=== PATIENT | female | born 1950 | race Caucasian/White ===

== ENCOUNTER 2020-08-26 09:59 | Outpatient (REF) | payer MEDICARE, BC, SELFPAY ==
[2020-08-26 11:23] LABS: Hematocrit 41.4 % (37-47); Hemoglobin 13.2 g/dl (12.0-16.0); Mean Corpuscular HGB Conc 31.9 g/dl (31.0-35.0); Mean Corpuscular Hemoglobin 29.3 pg (27.0-33.0); Mean Corpuscular Volume 91.8 fL (80-98); Mean Platelet Volume 10.3 fL (9.4-12.3); Platelet Count 274 X10*3/uL (160-400); Red Blood Count 4.51 X10*6/uL (4.20-5.50); Red Cell Distribution Width 13.1 % (11.0-16.0); White Blood Count 6.5 X10*3/uL (4.8-10.8)
[2020-08-26 11:54] LABS: Alanine Aminotransferase 28 U/L (0-31); Albumin Level 4.2 g/dL (3.5-5.0); Alkaline Phosphatase 69 U/L (39-117); Anion Gap 12 (12-20); Aspartate Amino Transferase 24 U/L (5-31); Bilirubin Total 1.1 mg/dL (0.0-1.0); Blood Urea Nitrogen 17 mg/dL (9-16); Calcium 8.9 mg/dL (8.4-10.2); Carbon Dioxide 29 mmol/L (22-29); Chloride 105 mmol/L (96-108); Cholesterol 198 mg/dL; Estimated Glomerular Filt Rate > 60; Glucose Random 99 mg/dL (60-115); HDL Cholesterol 60 mg/dL; LDL Cholesterol Calculated 119 mg/dl; Potassium 4.4 mmol/L (3.3-5.1); Sodium 142 mmol/L (135-145); Total Protein 6.9 g/dL (6.5-8.0); Triglycerides 96 mg/dL
[2020-08-26 12:02] LABS: TSH reflex Free T4 1.94 uIU/mL (0.32-4.0)
== END 2020-08-26 10:00 | disposition home or self-care (01) ==
LOC: HO.HMGCLDS 09:59
PROVIDERS: PCP Internal Medicine; Visit Provider Internal Medicine
DX: M48.061 Spinal stenosis, lumbar region without neurogenic claudication (principal); G62.9 Polyneuropathy, unspecified; R53.83 Other fatigue
CPT/HCPCS: 36415; 80053; 80061; 84443; 85027

== ENCOUNTER → 2020-11-16 13:20 | Outpatient (BNVA) | payer MEDICARE, BC, SELFPAY | PROVIDERS: PCP Internal Medicine; Visit Provider Obstetrics & Gynecology ==

== ENCOUNTER 2021-03-30 13:06 | Outpatient (REF) | payer MEDICARE, BC, SELFPAY ==
--- NOTE | ~2021-03-30 | MM_ITS ---
EXAMINATION: MM SCREENING DIGITAL BREAST TOMOSYNTHESIS, BILATERAL CLINICAL INFORMATION: Screening. Asymptomatic. The lifetime risk of breast cancer based on the Tyrer-Cuzick Model is 7%. COMPARISON: Mammography: 03/25/2020, 03/08/2016 TECHNIQUE: Digital breast tomosynthesis is performed in both the craniocaudal and mediolateral oblique views along with computer-aided detection (CAD). Synthesized 2D images are generated from the tomosynthesis. Additional left MLO additional exaggerated left CC views are provided. FINDINGS: There are scattered areas of fibroglandular density (ACR BI-RADS breast composition Category b). There are no significant masses, abnormal calcifications, or other abnormalities. Parenchymal pattern is similar to prior exams. There are stable asymmetries on the right. No developing density. Skin contours are smooth. No significant changes. MM/MM tomosynthesis screening BI IMPRESSION: No mammographic evidence of malignancy. ASSESSMENT: BI-RADS 2: Benign RECOMMENDATION: Routine annual mammography screening. This patient's information was entered into a reminder system with a target due date for their next mammogram.
== END 2021-03-30 13:07 | disposition home or self-care (01) ==
LOC: HO.MAMMO 13:06
PROVIDERS: PCP Internal Medicine; Visit Provider Internal Medicine
DX: Z12.31 Encounter for screening mammogram for malignant neoplasm of breast (principal)
CPT/HCPCS: 77063; 77067

== ENCOUNTER 2021-09-04 10:04 | Outpatient (REF) | payer MEDICARE, BC, SELFPAY ==
[2021-09-04 11:18] LABS: Hematocrit 40.9 % (37.0-47.0); Hemoglobin 13.3 g/dl (12.0-16.0); Mean Corpuscular HGB Conc 32.5 g/dl (31.0-35.0); Mean Corpuscular Hemoglobin 30.1 pg (27.0-33.0); Mean Corpuscular Volume 92.5 fL (80.0-98.0); Platelet Count 295 X10*3/uL (160-400); Red Blood Count 4.42 X10*6/uL (4.20-5.50); Red Cell Distribution Width 13.2 % (11.0-16.0); White Blood Count 6.6 X10*3/uL (4.8-10.8)
[2021-09-04 11:45] LABS: Alanine Aminotransferase 25 U/L (0-31); Albumin Level 4.1 g/dL (3.5-5.0); Alkaline Phosphatase 65 U/L (39-117); Anion Gap 12 (12-20); Aspartate Amino Transferase 21 U/L (5-31); Bilirubin Total 0.9 mg/dL (0.0-1.0); Blood Urea Nitrogen 17 mg/dL (9-16); Calcium 9.4 mg/dL (8.4-10.2); Carbon Dioxide 29 mmol/L (22-29); Chloride 105 mmol/L (96-108); Cholesterol 203 mg/dL; Estimated Glomerular Filt Rate > 60; Glucose Fasting 101 mg/dL (60-99); HDL Cholesterol 66 mg/dL; LDL Cholesterol Calculated 124 mg/dl; Potassium 4.3 mmol/L (3.3-5.1); Sodium 142 mmol/L (135-145); Total Protein 6.8 g/dL (6.5-8.0); Triglycerides 69 mg/dL
[2021-09-04 11:47] LABS: Vitamin D 25-OH Total 46.2 ng/mL (>30)
== END 2021-09-04 10:05 | disposition home or self-care (01) ==
LOC: HO.HMGCLDS 10:04
PROVIDERS: Visit Provider Internal Medicine
DX: M48.061 Spinal stenosis, lumbar region without neurogenic claudication (principal); R53.83 Other fatigue; E55.9 Vitamin D deficiency, unspecified
CPT/HCPCS: 36415; 80053; 80061; 82306; 85027

== ENCOUNTER 2021-09-07 10:24 | Outpatient (REF) | payer MEDICARE, BC, SELFPAY ==
[2021-09-07 12:28] LABS: TSH reflex Free T4 1.85 uIU/mL (0.32-4.0)
[2021-09-07 13:03] LABS: Folate 18.8 ng/mL (> or = 4.0); Vitamin B12 > 2000 pg/mL (200-900)
[2021-09-11 12:41] LABS: Methylmalonic Acid 121 nmol/L (87-318)
== END 2021-09-07 10:25 | disposition home or self-care (01) ==
LOC: HO.HMGCLDS 10:24
PROVIDERS: PCP Internal Medicine; Visit Provider Internal Medicine
DX: Z00.00 Encounter for general adult medical examination without abnormal findings (principal); E53.8 Deficiency of other specified B group vitamins; E55.9 Vitamin D deficiency, unspecified; G62.9 Polyneuropathy, unspecified
CPT/HCPCS: 36415; 82607; 82746; 83921; 84443

== ENCOUNTER 2022-02-04 04:11 | Emergency (ER) | payer MEDICARE, BC, SELFPAY ==
--- NOTE | ~2022-02-04 | CT_ITS ---
EXAMINATION: CT ABDOMEN AND PELVIS WITHOUT CONTRAST CLINICAL INFORMATION: Left flank pain with blood in urine. COMPARISON: None TECHNIQUE: Multidetector volumetric imaging was performed from the superior aspect of the liver through the pubic symphysis. Sagittal and coronal reformatted images were obtained on the technologist's workstation. This CT examination was performed using dose optimization techniques as appropriate, variously including the following: *Automated exposure control *Adjustment of mA and/or kV according to patient size (this includes techniques or standardized protocols for targeted exams where dose is matched to indication/reason for exam; i.e. extremities or head) *Use of iterative reconstruction technique DLP: 655 mGy-cm FINDINGS: LUNG BASES: There are mild atelectatic changes in the lingula. The lung bases are clear. The heart size is normal. LIVER, GALLBLADDER, AND BILIARY TREE: The liver is normal in size, shape, and attenuation. No focal hepatic lesion or biliary ductal dilatation is present. The gallbladder is unremarkable with no evidence of radiopaque gallstones, gallbladder wall thickening, or obvious pericholecystic inflammatory changes. PANCREAS: There is a hypodense-appearing head of the pancreas but no focal enlargement is seen. The peripancreatic fat borders are maintained. The body and the tail of pancreas are unremarkable. SPLEEN: Unremarkable. ADRENAL GLANDS: Unremarkable. KIDNEYS AND URETERS: The kidneys are normal in size, shape, and attenuation. There is 2 mm radiopaque calculi in the lower pole and upper pole left kidneys without caliectasis. There is moderate left hydronephrosis secondary to an obstructive left UVJ. There is a 4 mm obstructive radiopaque calculi. There are no radiopaque calculi seen in the right kidney. BLADDER: Unremarkable. GASTROINTESTINAL TRACT: There is scattered stool and gas seen in the colon without any significant distention. The small bowel loops are of normal caliber. The stomach is nondistended. Appendix is of normal caliber. There is no free air or inflammatory process. ABDOMINAL WALL: No significant hernia is appreciated. LYMPH NODES: Normal. VASCULAR: There is atherosclerotic changes of abdominal aorta without aneurysmal dilatation. PELVIC VISCERA: The uterus is anteverted and appears unremarkable. There is no free air or free fluid. OSSEOUS STRUCTURES: There are degenerative disc changes throughout the lumbar spine with ventral spondylosis. Grade 1 anterolisthesis of L4-L5 is seen. There is moderate ventral spondylosis of L5-S1 and lower dorsal and upper lumbar spine. No lytic or sclerotic process is seen. CT/CT abdomen pelvis wo con IMPRESSION: 4 mm obstructive radiopaque calculi left UVJ with mild hydroureteronephrosis. Nonobstructive 3 mm radiopaque calculi of the upper and lower pole left kidney. Mild constipation. Degenerative disc changes and spondylosis throughout the lower dorsal and upper lumbar spines with mild levoscoliosis of the dorsolumbar junction. Fleischner guidelines were followed.
[2022-02-04 04:29] VITALS: BP 185/75; PULSE 75; RESP 20; TEMP 37.1; O2SAT 95; BMI 34.7
[2022-02-04 04:41] LABS: Hematocrit 41.3 % (37.0-47.0); Hemoglobin 13.7 g/dl (12.0-16.0); Mean Corpuscular HGB Conc 33.2 g/dl (31.0-35.0); Mean Corpuscular Hemoglobin 29.7 pg (27.0-33.0); Mean Corpuscular Volume 89.6 fL (80.0-98.0); Mean Platelet Volume 12.5 fL (9.4-12.3); Red Blood Count 4.61 X10*6/uL (4.20-5.50); Red Cell Distribution Width 13.1 % (11.0-16.0); White Blood Count 11.3 X10*3/uL (4.8-10.8)
[2022-02-04 04:57] LABS: Alanine Aminotransferase 26 U/L (0-31); Albumin Level 4.4 g/dL (3.5-5.0); Alkaline Phosphatase 67 U/L (39-117); Anion Gap 14 (12-20); Aspartate Amino Transferase 26 U/L (5-31); Blood Urea Nitrogen 14 mg/dL (9-16); Calcium 9.5 mg/dL (8.4-10.2); Carbon Dioxide 27 mmol/L (22-29); Chloride 103 mmol/L (96-108); Creatinine Clr Calc Pharmacy 67.2; Estimated Glomerular Filt Rate > 60; Glucose Random 126 mg/dL (60-115); Sodium 140 mmol/L (135-145); Total Protein 7.4 g/dL (6.5-8.0)
[2022-02-04 05:29] LABS: Appearance Urine CLEAR; Color Urine YELLOW; Glucose Urine UA NEG (NEG); Leukocyte Esterase Urine NEG (NEG); Nitrite Urine NEG (NEG); UACC Culture Trigger NO; Urine Blood 3+ (NEG); Urine Ketones NEG (NEG); Urine Protein NEG (NEG-TRACE)
[2022-02-04 05:45] LABS: Amorphous Sediment Urine 1+ /LPF; Mucus Urine TRACE /LPF; RBC Urine 0-2 /HPF (0); Squamous Epithelial Cell Urine 1+ /LPF
--- NOTE | 2022-02-04 08:21 | ED.GENADULT ---
HPI - General Adult General Chief complaint: Abdominal Pain Stated complaint: bladder / kidney infection? unable to urinate Time Seen by Provider: 02/04/22 08:07 Source: patient and family Mode of arrival: ambulatory Limitations: no limitations History of Present Illness HPI narrative: 71 year old female came in for evaluation of left flank pain. Left flank pain started since 04:00 in the morning woke the patient up from sleep, pain was described as left flank radiated to the left groin area, patient took 2 doses of clindamycin left over at home, half an hour later patient's symptoms improved. No dysuria, no urinary frequency. Related Data Home Medications Medication Instructions Recorded Confirmed ascorbic acid (vitamin C) 500 mg mg PO 05/06/20 09/07/21 capsule cholecalciferol (vitamin D3) 50 50 mcg PO DAILY 05/06/20 09/07/21 mcg (2,000 unit) capsule cyclosporine 0.05 % eye drops in a drp ophthalmic (eye) 05/06/20 09/07/21 dropperette etodolac 400 mg tablet 400 mg PO BID 05/06/20 09/07/21 fluticasone propionate 50 intranasal 05/06/20 09/07/21 mcg/actuation nasal spray,suspension alendronate 70 mg tablet 70 mg PO QWEEK 08/20/20 09/07/21 alpha lipoic acid 300 mg capsule 300 mg PO TID 09/07/21 09/07/21 arganie PO 09/07/21 09/07/21 clindamycin HCl 300 mg capsule 600 mg PO QID 09/07/21 09/07/21 mecobalamin (vitamin B12) PO 09/07/21 09/07/21 Previous Rx's Medication Instructions Recorded albuterol sulfate 90 mcg/actuation 2 puff inhalation QID #6.7 grams 05/06/20 aerosol inhaler (ProAir HFA) valacyclovir 500 mg tablet 500 mg PO BID #30 tabs 05/15/20 (Valtrex) fluticasone 100 mcg-salmeterol 50 1 inh inhalation BID #60 ea 08/11/20 mcg/dose blistr powdr for inhalation montelukast 10 mg tablet 10 mg PO BEDTIME #90 tabs 02/08/21 pantoprazole 40 mg tablet,delayed 40 mg PO DAILY #90 tabs 11/01/21 release ibuprofen 600 mg tablet 600 mg PO Q8H PRN pain #20 tabs 02/04/22 Allergies Allergy/AdvReac Type Severity Reaction Status Date / Time adhesive tape [ADHESIVE TAPE] Allergy Intermediate BLISTERS/IT Verified 09/07/21 09:25 CH latex [LATEX] Allergy Intermediate BLISTERS/IT Verified 09/07/21 09:25 CH Penicillins [PENICILLINS] Allergy Intermediate HIVES/RASH Verified 09/07/21 09:25 sulfamethoxazole Allergy Unknown puritis Verified 09/07/21 09:25 [From Bactrim] trimethoprim [From Bactrim] Allergy Unknown puritis Verified 09/07/21 09:25 erythromycin base AdvReac Intermediate N/V Verified 09/07/21 09:25 [ERYTHROMYCIN BASE] meloxicam AdvReac Unknown body aches Verified 09/07/21 09:25 Review of Systems Review of Systems: All other systems are reviewed and are negative Constitutional: Reports as per HPI and Reports no additional constitutional complaints Eyes: Reports as per HPI and Reports no additional eye complaints Reports system reviewed and no additional complaints, except as documented Cardiovascular: Reports as per HPI and Reports no additional cardiovascular complaints Respiratory: Reports as per HPI and Reports no additional respiratory complaints Gastrointestinal: Reports as per HPI and Reports no additional gastrointestinal complaints Genitourinary: Reports no additional female genitourinary complaints Musculoskeletal: Reports no additional musculoskeletal complaints Skin/Breast: Reports system reviewed and no additional complaints, except as docu Psychiatric: Reports no additional psychiatric complaints Endocrine: Reports no additional endocrine complaints Hematologic/Lymphatic: Reports no additional hematologic/lymphatic complaints Allergic/Immunologic: Reports no additional allergic/immunologic complaints Reports system reviewed and no additional complaints, except as documented and Reports Abnormal speech present FOR[facility]LY [facility] Past Medical History Medical History Acid reflux Annual physical exam Arthritis Asthma Fatigue Lumbar stenosis Mammogram normal Neuropathy Normal breast exam Normal colonoscopy Osteopenia PMR (polymyalgia rheumatica) Seasonal allergies Venous insufficiency Vitamin B 12 deficiency Vitamin D deficiency Surgical History H/O arthroscopy of knee H/O colonoscopy History of section History of knee replacement History of ligation of vein Family History Family History Father No problems noted. Mother Heart disease Maternal Grandfather No problems noted. Maternal Grandmother No problems noted. Paternal Grandfather No problems noted. Paternal Grandmother Breast cancer Social History Social History Advance Directives: No Advance Directives Information Provided: Yes Physical Exam ED Vital Signs: Vital Signs - 24 hr 02/04/22 04:29 Temperature 98.7 F Pulse Rate 75 Respiratory Rate 20 Blood Pressure 185/75 H Pulse Oximetry 95 Oxygen Delivery Method Room Air BMI result Body Mass Index 34.7 Vital signs have been reviewed as appeared to be correct. Blood pressure normal. Heart rate normal. Respiration rate normal. Temperature normal. Oxygen saturation normal. Appearance: Alert. Oriented X3. No acute distress. Head: Normal external exam. Normocephalic. Atraumatic. No Will signs noted. No raccoon eyes noted Eyes: PERRLA. EOMI. Conjunctiva and sclera normal. Eyelids normal. ENT: TM's Normal. Pharynx normal. Uvula midline. Moist mucous membranes. No trismus noted. No drooling noted. No muffled voice noted. Neck: Normal inspection. Neck supple. FROM. No adenopathy. Thyroid Normal. No meningeal signs. No neck mass noted. CVS: Normal heart rate and rhythm. Heart sound normal. No murmurs noted. Pulses normal throughout. Respiratory: No respiratory distress. Painless inspiration. Breath sounds normal. No wheezes/rales/rhonchi noted. Chest nontender. No accessory muscle usage noted or decreased air movement noted. Abdomen: Soft and nontender. Bowel sounds normal in all 4 quadrants. No distention noted. No organomegaly noted. No visible injury noted. Back: No CVA tenderness. Full range of motion noted. Skin: Skin warm and dry. Normal skin color. Normal skin turgor. No rashes/lesions/lacerations noted. Extremities: No lower extremity edema. Extremities exhibit normal range of motion. Extremities nontender. Neuro: Oriented X 3. Cranial nerve exam: II-XII are grossly intact No motor deficit. No sensory deficit. Reflexes normal. Course Course Course Narrative: 71 years old female came in for left lower quadrant/left flank pain due to 4 mm obstructing stone in UVJ, patient now has no pain sitting comfortable in the ED, will discharge the patient with encouraged to drink plenty of fluids and use NSAIDs p.r.n. pain. Medical Decision Making Lab Data Lab results reviewed: Yes I reviewed the patient's lab results. Result diagrams: 02/04/22 04:25 02/04/22 04:25 Labs: Lab Results 02/04/22 02/04/22 02/04/22 Range/Units 04:25 04:25 05:22 WBC 11.3 H (4.8-10.8) X10*3/uL RBC 4.61 (4.20-5.50) X10*6/uL Hgb 13.7 (12.0-16.0) g/dl Hct 41.3 (37.0-47.0) % MCV 89.6 (80.0-98.0) fL MCH 29.7 (27.0-33.0) pg MCHC 33.2 (31.0-35.0) g/dl RDW 13.1 (11.0-16.0) % Plt Count TNP MPV 12.5 H (9.4-12.3) fL Absolute Nucleated RBC 0.000 (0.0-0.012) X10*3/uL Nucleated RBC % (auto) 0.0 (0.0-0.2) /100WBC Sodium 140 (135-145) mmol/L Potassium 4.0 (3.3-5.1) mmol/L Chloride 103 (96-108) mmol/L Carbon Dioxide 27 (22-29) mmol/L Anion Gap 14 (12-20) BUN 14 (9-16) mg/dL Creatinine 0.76 (0.5-1.4) mg/dL Estim Creat Clear Calc 67.2 Estimated GFR > 60 Random Glucose 126 H (60-115) mg/dL Calcium 9.5 (8.4-10.2) mg/dL Total Bilirubin 1.0 (0.0-1.0) mg/dL AST 26 (5-31) U/L ALT 26 (0-31) U/L Alkaline Phosphatase 67 (39-117) U/L Total Protein 7.4 (6.5-8.0) g/dL Albumin 4.4 (3.5-5.0) g/dL Urine Color YELLOW Urine Appearance CLEAR Urine pH 6.0 (5.0-8.0) Ur Specific [place] 1.010 (1.005-1.025) Urine Protein NEG (NEG-TRACE) MG/DL Urine Glucose (UA) NEG (NEG) MG/DL Urine Ketones NEG (NEG) MG/DL Urine Blood 3+ H (NEG) Urine Nitrite NEG (NEG) Ur Leukocyte Esterase NEG (NEG) Urine RBC 0-2 (0) /HPF Urine WBC 1-4 (0-4) /HPF Ur Squamous Epith Cells 1+ /LPF Amorphous Sediment 1+ /LPF Urine Bacteria NONE /LPF Urine Mucus TRACE /LPF Imaging Data CT abdomen and pelvis: Attestation: I personally reviewed and interpreted this imaging study as follows: Radiologist's impression: 4 mm obstructive radiopaque calculi left UVJ with mild hydroureteronephrosis. ? Nonobstructive 3 mm radiopaque calculi of the upper and lower pole left kidney. ? Mild constipation. ? Degenerative disc changes and spondylosis throughout the lower dorsal and upper lumbar spines with mild levoscoliosis of the dorsolumbar junction.? Discharge Plan Discharge Clinical Impression: Abdominal pain, Kidney stone Patient Disposition: Home, Self-Care Instructions: Renal Colic (ED) Prescriptions: New ibuprofen 600 mg tablet 600 mg PO Q8H PRN (Reason: pain) Qty: 20 0RF No Action valacyclovir [Valtrex] 500 mg tablet 500 mg PO BID Qty: 30 4RF fluticasone propion-salmeterol 100-50 mcg/dose blister with device 1 inh inhalation BID Qty: 60 6RF montelukast 10 mg tablet 10 mg PO BEDTIME Qty: 90 3RF pantoprazole 40 mg tablet,delayed release (DR/EC) 40 mg PO DAILY Qty: 90 3RF fluticasone propionate 50 mcg/actuation spray,suspension intranasal Restasis 0.05 % dropperette ophthalmic (eye) etodolac 400 mg tablet 400 mg PO BID cholecalciferol (vitamin D3) 50 mcg (2,000 unit) capsule 50 mcg PO DAILY ascorbic acid (vitamin C) 500 mg capsule PO albuterol sulfate [ProAir HFA] 90 mcg/actuation HFA aerosol inhaler 2 puff inhalation QID Qty: 6.7 4RF alendronate 70 mg tablet 70 mg PO QWEEK alpha lipoic acid 300 mg capsule 300 mg PO TID mecobalamin (vitamin B12) PO arganie PO clindamycin HCl 300 mg capsule 600 mg PO QID Rx Instructions: before dental procedures Referrals: Ricardo Mallory MD [Physician] - Natali Macario MD [Primary Care Provider] -
--- NOTE | 2022-02-04 11:12 | PC.NURSE ---
Called radiology again regarding delay in CT scan results report. Staff member stated I messaged the doctor about it already and hung up the phone. Pt aware of delay in receiving report.
== END 2022-02-04 11:37 | disposition home or self-care (01) ==
PROVIDERS: Emergency Provider Emergency Medicine; PCP Internal Medicine
DX: N13.2 Hydronephrosis with renal and ureteral calculous obstruction (principal); R10.9 Unspecified abdominal pain; Z79.899 Other long term (current) drug therapy
CPT/HCPCS: 36415; 74176; 80053; 81001; 85027; 99283; 99284

== ENCOUNTER 2022-04-05 13:15 | Outpatient (REF) | payer MEDICARE, BC, SELFPAY ==
--- NOTE | ~2022-04-05 | MM_ITS ---
EXAMINATION: MM SCREENING DIGITAL BREAST TOMOSYNTHESIS, BILATERAL CLINICAL INFORMATION: Screening. Asymptomatic. The lifetime risk of breast cancer based on the Tyrer-Cuzick Model is 6.7%. COMPARISON: Mammography: March 30, 2021 and studies dating back to December 25, 2013 TECHNIQUE: Digital breast tomosynthesis is performed in both the craniocaudal and mediolateral oblique views along with computer-aided detection (CAD). Synthesized 2D images are generated from the tomosynthesis. FINDINGS: There are scattered areas of fibroglandular density (ACR BI-RADS breast composition Category b). There are no significant masses, abnormal calcifications, or other abnormalities. MM/MM tomosynthesis screening BI IMPRESSION: No significant changes from prior exam. ASSESSMENT: BI-RADS 1: Negative RECOMMENDATION: Routine annual mammography screening. This patient's information was entered into a reminder system with a target due date for their next mammogram.
== END 2022-04-05 13:16 | disposition home or self-care (01) ==
LOC: HO.MAMMO 13:15
PROVIDERS: PCP Internal Medicine; Visit Provider Internal Medicine
DX: Z12.31 Encounter for screening mammogram for malignant neoplasm of breast (principal)
CPT/HCPCS: 77063; 77067

== ENCOUNTER 2022-08-04 11:46 | Outpatient (REF) | payer MEDICARE, BC, SELFPAY ==
[2022-08-04 14:03] LABS: MANUAL DIFF FLAG NO
[2022-08-04 14:17] LABS: Basophils Absolute Auto 0.1 X10*3/uL (0.0-0.2); Eosinophils Absolute Auto 0.2 X10*3/uL (0.0-0.4); Eosinophils Percent Auto 1.8 % (0-4); Hematocrit 46.5 % (37.0-47.0); Hemoglobin 14.8 g/dl (12.0-16.0); Imm Gran Abs Auto 0.02 X10*3/uL (0.00-0.03); Imm Gran Pct Auto 0.2 % (0.0-0.4); Lymphocytes Absolute Auto 1.1 X10*3/uL (1.2-4.9); Lymphocytes Percent Auto 13.6 % (20-40); Mean Corpuscular HGB Conc 31.8 g/dl (31.0-35.0); Mean Corpuscular Hemoglobin 28.7 pg (27.0-33.0); Mean Corpuscular Volume 90.3 fL (80.0-98.0); Monocytes Absolute Auto 0.5 X10*3/uL (0.1-1.2); Monocytes Percent Auto 6.3 % (2-11); Neutrophils Absolute Auto 6.4 x10*3/uL (2.0-8.3); Neutrophils Percent Auto 77.1 % (45-73); Red Blood Count 5.15 X10*6/uL (4.20-5.50); Red Cell Distribution Width 12.4 % (11.0-16.0); White Blood Count 8.3 X10*3/uL (4.8-10.8)
[2022-08-04 14:31] LABS: Alanine Aminotransferase 17 U/L (0-31); Albumin Level 4.5 g/dL (3.5-5.0); Alkaline Phosphatase 85 U/L (39-117); Anion Gap 15 (12-20); Aspartate Amino Transferase 18 U/L (5-31); Bilirubin Total 1.1 mg/dL (0.0-1.0); Blood Urea Nitrogen 13 mg/dL (9-16); Calcium 9.6 mg/dL (8.4-10.2); Carbon Dioxide 26 mmol/L (22-29); Chloride 104 mmol/L (96-108); Estimated Glomerular Filt Rate > 60; Glucose Random 98 mg/dL (60-115); Magnesium 2.1 mg/dL (1.6-2.6); Potassium 4.2 mmol/L (3.3-5.1); Sodium 141 mmol/L (135-145); Total Protein 7.7 g/dL (6.5-8.0)
[2022-08-04 14:50] LABS: TSH reflex Free T4 1.97 uIU/mL (0.32-4.0)
[2022-08-04 14:52] LABS: Vitamin B12 1294 pg/mL (200-900)
[2022-08-09 16:59] LABS: Vitamin D 25-OH, D2 <4 ng/mL; Vitamin D 25-OH, D3 34 ng/mL; Vitamin D 25-OH, Total 34 ng/mL (30-100)
== END 2022-08-04 11:47 | disposition home or self-care (01) ==
LOC: HO.HMGCLDS 11:46
PROVIDERS: PCP Internal Medicine; Visit Provider Internal Medicine
DX: R25.2 Cramp and spasm (principal)
CPT/HCPCS: 36415; 80053; 82306; 82607; 83735; 84443; 85025

== ENCOUNTER 2022-09-02 13:01 | Outpatient (REF) | payer MEDICARE, BC, SELFPAY ==
[2022-09-02 14:40] LABS: Blood Urea Nitrogen 19 mg/dL (9-16); Estimated Glomerular Filt Rate > 60
== END 2022-09-02 13:02 | disposition home or self-care (01) ==
LOC: HO.HMGCLDS 13:01
PROVIDERS: PCP Internal Medicine; Visit Provider Physician Assistant Medical
DX: M54.16 Radiculopathy, lumbar region (principal)
CPT/HCPCS: 36415; 82565; 84520

== ENCOUNTER 2022-09-09 09:56 | Outpatient (REF) | payer MEDICARE, BC, SELFPAY ==
[2022-09-09 11:43] LABS: MANUAL DIFF FLAG NO
[2022-09-09 11:58] LABS: Basophils Absolute Auto 0.1 X10*3/uL (0.0-0.2); Eosinophils Absolute Auto 0.3 X10*3/uL (0.0-0.4); Eosinophils Percent Auto 5.5 % (0-4); Hematocrit 41.3 % (37.0-47.0); Hemoglobin 13.4 g/dl (12.0-16.0); Imm Gran Abs Auto 0.02 X10*3/uL (0.00-0.03); Imm Gran Pct Auto 0.3 % (0.0-0.4); Lymphocytes Absolute Auto 1.2 X10*3/uL (1.2-4.9); Lymphocytes Percent Auto 20.8 % (20-40); Mean Corpuscular HGB Conc 32.4 g/dl (31.0-35.0); Mean Corpuscular Hemoglobin 28.8 pg (27.0-33.0); Mean Corpuscular Volume 88.8 fL (80.0-98.0); Mean Platelet Volume 10.5 fL (9.4-12.3); Monocytes Absolute Auto 0.5 X10*3/uL (0.1-1.2); Monocytes Percent Auto 8.2 % (2-11); Neutrophils Absolute Auto 3.8 x10*3/uL (2.0-8.3); Neutrophils Percent Auto 64.2 % (45-73); Platelet Count 225 X10*3/uL (160-400); Red Blood Count 4.65 X10*6/uL (4.20-5.50); Red Cell Distribution Width 13.1 % (11.0-16.0)
[2022-09-09 12:23] LABS: Alanine Aminotransferase 18 U/L (0-31); Albumin Level 3.9 g/dL (3.5-5.0); Alkaline Phosphatase 72 U/L (39-117); Anion Gap 15 (12-20); Aspartate Amino Transferase 16 U/L (5-31); Blood Urea Nitrogen 17 mg/dL (9-16); Calcium 9.5 mg/dL (8.4-10.2); Carbon Dioxide 31 mmol/L (22-29); Chloride 104 mmol/L (96-108); Cholesterol 195 mg/dL; Estimated Glomerular Filt Rate > 60; Glucose Fasting 102 mg/dL (60-99); HDL Cholesterol 56 mg/dL; LDL Cholesterol Calculated 118 mg/dl; Potassium 4.6 mmol/L (3.3-5.1); Sodium 145 mmol/L (135-145); Total Protein 6.6 g/dL (6.5-8.0); Triglycerides 107 mg/dL
[2022-09-09 12:38] LABS: Vitamin D 25-OH Total 33.1 ng/mL (>30)
== END 2022-09-09 09:57 | disposition home or self-care (01) ==
LOC: HO.HMGCLDS 09:56
PROVIDERS: PCP Internal Medicine; Visit Provider Internal Medicine
DX: Z00.00 Encounter for general adult medical examination without abnormal findings (principal); J45.909 Unspecified asthma, uncomplicated; R53.83 Other fatigue; E55.9 Vitamin D deficiency, unspecified
CPT/HCPCS: 36415; 80053; 80061; 82306; 85025

== ENCOUNTER 2023-04-11 13:22 | Outpatient (REF) | payer MEDICARE, BC, SELFPAY ==
--- NOTE | ~2023-04-11 | MM_ITS ---
EXAMINATION: MM SCREENING DIGITAL BREAST TOMOSYNTHESIS, BILATERAL CLINICAL INFORMATION: Screening. Asymptomatic. COMPARISON: Mammography: This study is compared with prior exams dating back to 2016. TECHNIQUE: Digital breast tomosynthesis is performed in both the craniocaudal and mediolateral oblique views along with computer-aided detection (CAD). Synthesized 2D images are generated from the tomosynthesis. FINDINGS: There are scattered areas of fibroglandular density (ACR BI-RADS breast composition Category b). This is the overall breast density however, there is long-standing relative the more glandular tissue in the right breast as compared to the left. The left breast is predominantly fatty replaced. This is normal for this patient, multiple prior mammograms. There are no significant masses, abnormal calcifications, or other abnormalities. MM/MM tomosynthesis screening BI IMPRESSION: No mammographic evidence of malignancy. ASSESSMENT: BI-RADS BI-RADS 1 - Negative RECOMMENDATION: Routine annual mammography screening. 1 year F/U This examination should not preclude the clinical evaluation of a suspicious palpable abnormality. This patient's information was entered into a reminder system with a target due date for their next mammogram.
== END 2023-04-11 13:23 | disposition home or self-care (01) ==
LOC: HO.MAMMO 13:22
PROVIDERS: PCP Internal Medicine; Visit Provider Internal Medicine
DX: Z12.31 Encounter for screening mammogram for malignant neoplasm of breast (principal)
CPT/HCPCS: 77063; 77067

== ENCOUNTER → 2023-04-11 13:30 | Outpatient (BNV) | payer MEDICARE, BC, SELFPAY | PROVIDERS: PCP Internal Medicine; Visit Provider Radiology Diagnostic Radiology | DX: Z12.31 Encounter for screening mammogram for malignant neoplasm of breast (principal) | CPT/HCPCS: 77063; 77067 ==

== ENCOUNTER 2023-09-14 11:21 | Outpatient (AMB) | payer MEDICARE, BC, SELFPAY ==
[2023-09-14 11:44] VITALS: BP 120/78; PULSE 69; O2SAT 99; BMI 34.7
--- NOTE | 2023-09-14 11:44 | A.OFFVIS_ITS ---
Intake Vital Signs 09/14/23 11:44 Height 5 ft 2 in Weight 190 lb BMI 34.7 BP 120/78 Blood Pressure Location Lt brachial Position Sitting Pulse 69 Pulse Source Pulse Oximeter Pulse Oximetry (%) 99 Oxygen Delivery Method Room Air Intake Visit Reasons: MINDY [id number]. discuss/bill ACP Allergies adhesive tape [ADHESIVE TAPE] Allergy (Intermediate, Verified 09/14/23 11:46) BLISTERS/ITCH latex [LATEX] Allergy (Intermediate, Verified 09/14/23 11:46) BLISTERS/ITCH Penicillins [PENICILLINS] Allergy (Intermediate, Verified 09/14/23 11:46) HIVES/RASH sulfamethoxazole [From Bactrim] Allergy (Unknown, Verified 09/14/23 11:46) puritis trimethoprim [From Bactrim] Allergy (Unknown, Verified 09/14/23 11:46) puritis erythromycin base [ERYTHROMYCIN BASE] Adverse Reaction (Intermediate, Verified 09/14/23 11:46) N/V meloxicam Adverse Reaction (Unknown, Verified 09/14/23 11:46) body aches Medication List - Last Reconciled 09/14/23 by Natali Macario MD albuterol sulfate 90 mcg/actuation (ProAir HFA) 2 puffs inhalation QID alendronate 70 mg PO QWEEK [arganie PO] ascorbic acid (vitamin C) mg PO celecoxib (Celebrex) 250 mg PO DAILY cholecalciferol (vitamin D3) 50 mcg PO DAILY clindamycin HCl 600 mg PO QID cyclosporine 0.05% drps ophthalmic (eye) fluticasone propion-salmeterol 100-50 mcg/dose (Wixela Inhub) 1 inh inhalation BID fluticasone propionate 50 mcg/actuation 2 sprays intranasal DAILY gabapentin 900 mg PO DAILY montelukast 10 mg PO BEDTIME pantoprazole 40 mg PO DAILY valacyclovir (Valtrex) 500 mg PO BID HPI SWV [id number]. discuss/bill ACP HPI Details Initiated the conversation about Advanced Directives. Advanced Directives help? patients prepare for current and future decisions about their medical treatment? and place of care. Discussed with patient that it is a process where a patients? current condition and prognosis are reviewed, their wishes for information? regarding their illness are elicited, and likely medical dilemmas are presented? and options discussed. The form can be amended as needed, reviewed yearly and? make changes as needed IPPE/AWV ? year old presents? for her ? Annual? Wellness Visit, initial visit.? Medical / Social History Reviewed? Past Medical History ?Yes? . ? [facility] Ira? of Care / Care Team list updated ?Yes . ? Surgical/Hospitalization? History ?Yes . ? Current Medications? (including OTC and supplements) ?Yes . ? Family History ?Yes? . ? Tobacco? Control form ?Yes . ? AUDIT-C (Alcohol use) form? ?Yes . ? Illicit drug use in Social? History ?Yes . ? Current diagnosis of? depression? ?No ? Appropriate PHQ2/PHQ9? completed ?Yes . ? Data entered by ?Medical? Case Managers and reviewed by provider ? Fall Risk ? Fall? History? Have you had any falls with? injury in the past year? ?No . ? Have you had two or more? falls in the past year? ?No . ? Fall Risk Assessment: ?No? falls in the past year . ? HRA filled out by? the patient, reviewed by Provider and scanned. ? IPPE/AWV ? Balance? Romberg? ?Yes . ? Tandem? walk ?Yes . ? Walk and? Turn ?Yes . ? Rise from? sit to stand ?Yes . ?Vision? Corrective? lens ?Yes ? Vision? screen ? Up-to-date, has an appointment [] for vision? screening and glaucoma screening ?Hearing? Whisper? test ?pass .? Initiated the conversation about Advanced Directives. Advanced Directives help? patients prepare for current and future decisions about their medical treatment? and place of care. Discussed with patient that it is a process where a patients? current condition and prognosis are reviewed, their wishes for information? regarding their illness are elicited, and likely medical dilemmas are presented? and options discussed. The form can be amended as needed, reviewed yearly and? make changes as needed Written? Plan?Completed. See Patient? Documents. [facility] Medical History (Updated 09/14/23 @ 15:35 by Natali Macario MD) Normal breast exam Vitamin B 12 deficiency Annual physical exam Vitamin D deficiency Fatigue Lumbar stenosis Neuropathy Mammogram normal Normal colonoscopy Osteopenia PMR (polymyalgia rheumatica) Venous insufficiency Arthritis Acid reflux Seasonal allergies Asthma Surgical History H/O colonoscopy History of ligation of vein History of knee replacement H/O arthroscopy of knee History of section Family History Father No problems noted. Mother Heart disease Maternal Grandfather No problems noted. Maternal Grandmother No problems noted. Paternal Grandfather No problems noted. Paternal Grandmother Breast cancer Questionnaire Medicare Wellness Checkup [age] What gender do you identify with?: female During the past 4 weeks, how much have you been bothered by emotional problems such as feeling anxious, depressed, irritable, sad or downhearted, and blue?: slightly During the past 4 weeks, has your physical & emotional health limited your social activities with family, friends, neighbors, or groups?: not at all During the past 4 weeks, how much bodily pain have you generally had?: mild pain During the past 4 weeks, was someone available to help you if you needed & wanted help?: yes, as much as I wanted During the past 4 weeks, what was the hardest physical activity you could do for at least 2 minutes?: moderate Can you go shopping for groceries or clothes without someone's help?: Yes Can you prepare your own meals?: Yes Can you do your housework without help?: Yes Because of any health problems, do you need the help of another person with your personal care needs such as eating, bathing, dressing or getting around the house?: No Can you handle your own money without help?: Yes During the past 4 weeks, how would you rate your health in general?: excellent During the past 4 weeks how have things been going for you?: pretty well Are you having difficulties driving your car?: no Do you always fasten your seat belt when you are in a car?: yes, usually During past 4 weeks, have you been bothered by the following: never: Sexual problems?, Trouble eating well?, Teeth or denture problems? and Problems using the telephone?, seldom: Falling or dizzy when standing up and sometimes: Tiredness or fatigue? Have you fallen 2 or more times in the past year?: No Are you afraid of falling?: Yes Are you a smoker?: no During the past 4 weeks, how many drinks of wine, beer, or other alcoholic beverages did you have?: 1 drink or less per week Do you exercise for about 20 minutes 3 or more times a week?: yes, some of the time Have you been given information to help with the following?: yes: Hazards in your house that might hurt you? and yes: Keeping track of your medications? How often do you have trouble taking medicines the way you have been told to take them?: I always take medicine as prescribed How confident are you that you can control & manage most of your health problems?: very confident What is your race?: White Mini Mental State Exam (MMSE) Orientation What is the (year) (season) (date) (day) (month)?: year, season, date, day and month Where are we (state) (county) (town or city) (hospital) (floor)?: state, county, town or city, hospital/clinic and floor Registration Name of 3 unrelated objects clearly and slowly, then ask patient to repeat all 3 of them. (1st repeat determines score. Make sure they can repeat all three): object 1, object 2 and object 3 Attention & Calculation (CHOOSE ONE) Spell WORLD backwards (DLROW): 5 letters Recall Ask patient to repeat the 3 items from question #3.: object 1, object 2 and object 3 Language Show patient a wristwatch & ask what it is. Repeat for pencil.: watch and pencil Ask the patient to repeat the phrase 'No ifs, ands, or buts' after you.: correct Ask the patient to 'take a piece of paper with their right hand' 'fold paper in half' 'place paper on floor': take paper in right hand, fold paper in half and place paper on floor Print the sentence 'CLOSE YOUR EYES' on a piece. If patient actually closes eyes then score.: followed written direction Give patient a blank piece of paper & ask to write a sentence. Score if it contains a noun & verb.: sentence contains subject and verb Score Score: 29 Activity of Daily Living Bathing - sponge bath, tub bath or shower: receives no assistance (gets in/out by self, if usual bathing means Dressing - getting clothes from closets & drawers, including inner/outer garments & fasteners.: gets clothes & gets completely dressed without help Toileting - going to the 'toilet room' for urine/bowel elimination & cleaning self/arranging clothes: goes to toilet room, cleans self, arranges clothes without help Transfer: moves in & out of bed and chair without help (may use support object) Continence: controls urination/bowel movements completely by self Feeding: feeds self without help Total Score: 0 Information obtained from: patient Using telephone: independent Traveling: independent Shopping: independent Preparing meals: independent Housework: independent Taking medicine: independent Managing money: independent PHQ-9 Over the last 2 weeks, how often have you been bothered by any of the following problems? 1. Little interest or pleasure in doing things: not at all 2. Feeling down, depressed, or hopeless: not at all 3. Trouble falling or staying asleep, or sleeping too much: several days 4. Feeling tired or having little energy: several days 5. Poor appetite or overeating: not at all 6. Feeling bad about yourself - or that you are a failure or have let yourself or your family down: not at all 7. Trouble concentrating on things, such as reading the newspaper or watching television: not at all 8. Moving or speaking so slowly that other people could have noticed. Or the opposite - being so fidgety or restless that you have been moving around a lot more than usual: not at all 9. Thoughts that you would be better off or of hurting yourself in some way: not at all Total score: 2 Depression Screening Interpretation: Negative Depression Screening Done: Yes Source: Developed by Drs. Mikael Walden, Mindy Loredo, Gerson Francois and colleagues, with an educational haley from [employer]. Review of Systems Const All systems reviewed & are unremarkable except as noted in HPI and below Reports no additional complaints Eyes Reports no additional complaints ENT Reports no additional complaints Card Reports no additional complaints Resp Reports no additional complaints GI Reports no additional complaints Reports no additional complaints Physical Exam Vital Signs: Last Vital Signs Pulse 69 09/14/23 11:44 BP 120/78 09/14/23 11:44 Pulse Ox 99 09/14/23 11:44 Oxygen Delivery Method Room Air 09/14/23 11:44 BMI result Body Mass Index 34.7 Const General: no acute distress HEENT Head: Yes normal to inspection Ears: hearing grossly normal bilaterally Eyes General: appearance normal, both eyes and all related structures Neck Neck: Yes no lymphadenopathy and Yes supple Resp Effort & Inspection: normal respiratory effort Auscultation: clear to auscultation bilaterally Cardio Rhythm: regular rhythm Heart sounds: S1 normal heart sound present and S2 normal heart sound present GI Inspection: Yes normal to inspection Palpation (GI): Soft to palpation Percussion: Yes normal to percussion Auscultation: normal bowel sounds Extrem General: Yes no clubbing, cyanosis or edema Assessment & Plan Assessment & Plan (1) Vitamin D deficiency: Code(s): E55.9 - Vitamin D deficiency, unspecified Plan: Continue supplement (2) Mammogram normal: Comment: 02/2023 Plan: Negative mammogram (3) Asthma: Comment: Controlled on Wixela, using albuterol once or twice a month Code(s): J45.909 - Unspecified asthma, uncomplicated Plan: Continue current treatment (4) Vitamin B 12 deficiency: Code(s): E53.8 - Deficiency of other specified B group vitamins Plan: Continue vitamin B12 supplement (5) Osteopenia: Comment: DEXA 02/[address] Matias on Alendronate 03/2019, DEXA 2021 improved, Code(s): M85.80 - Other specified disorders of bone density and structure, unspecified site Plan: Patient is due for repeat DEXA this year and follows up with rheumatology (6) Annual physical exam: Code(s): Z00.00 - Encounter for general adult medical examination without abnormal findings Plan: Well-balanced diet regular physical activity discussed with the patient Orders: Orders Comprehensive Avilla. Panel Fast Today E53.8 - Deficiency of other specified B group vitamins, E55.9 - Vitamin D deficiency, unspecified, J45.909 - Unspecified asthma, uncomplicated, M85.80 - Other specified disorders of bone density and structure, unspecified site, Z00.00 - Encounter for general adult medical examination without abnormal findings Complete Blood Count Auto Diff Today E53.8 - Deficiency of other specified B group vitamins, E55.9 - Vitamin D deficiency, unspecified, J45.909 - Unspecified asthma, uncomplicated, M85.80 - Other specified disorders of bone density and structure, unspecified site, Z00.00 - Encounter for general adult medical examination without abnormal findings TSH reflex Free T4 Today E53.8 - Deficiency of other specified B group vitamins, E55.9 - Vitamin D deficiency, unspecified, J45.909 - Unspecified asthma, uncomplicated, M85.80 - Other specified disorders of bone density and structure, unspecified site, Z00.00 - Encounter for general adult medical examination without abnormal findings Vitamin D 25-OH Total Today E53.8 - Deficiency of other specified B group vitamins, E55.9 - Vitamin D deficiency, unspecified, J45.909 - Unspecified asthma, uncomplicated, M85.80 - Other specified disorders of bone density and structure, unspecified site, Z00.00 - Encounter for general adult medical examination without abnormal findings Comprehensive Avilla. Panel Fast 365 Days E53.8 - Deficiency of other specified B group vitamins, E55.9 - Vitamin D deficiency, unspecified, J45.909 - Unspecified asthma, uncomplicated, M85.80 - Other specified disorders of bone density and structure, unspecified site Lipid Panel 365 Days E53.8 - Deficiency of other specified B group vitamins, E55.9 - Vitamin D deficiency, unspecified, J45.909 - Unspecified asthma, uncomplicated, M85.80 - Other specified disorders of bone density and structure, unspecified site Vitamin D 25-OH (D2 and D3) 365 Days E53.8 - Deficiency of other specified B group vitamins, E55.9 - Vitamin D deficiency, unspecified, J45.909 - Unspecified asthma, uncomplicated, M85.80 - Other specified disorders of bone density and structure, unspecified site Lipid Panel Today E53.8 - Deficiency of other specified B group vitamins, E55.9 - Vitamin D deficiency, unspecified, J45.909 - Unspecified asthma, uncomplicated, M85.80 - Other specified disorders of bone density and structure, unspecified site, Z00.00 - Encounter for general adult medical examination without abnormal findings Vitamin B12 and Folate Today E53.8 - Deficiency of other specified B group vitamins, E55.9 - Vitamin D deficiency, unspecified, J45.909 - Unspecified asthma, uncomplicated, M85.80 - Other specified disorders of bone density and structure, unspecified site, Z00.00 - Encounter for general adult medical examination without abnormal findings TSH reflex Free T4 365 Days E53.8 - Deficiency of other specified B group vitamins, E55.9 - Vitamin D deficiency, unspecified, J45.909 - Unspecified asthma, uncomplicated, M85.80 - Other specified disorders of bone density and structure, unspecified site Vitamin B12 and Folate 365 Days E53.8 - Deficiency of other specified B group vitamins, E55.9 - Vitamin D deficiency, unspecified, J45.909 - Unspecified asthma, uncomplicated, M85.80 - Other specified disorders of bone density and structure, unspecified site Medications: Discontinued fluticasone propion-salmeterol 100-50 mcg/dose Discontinued Reason: Doctor's Order 1 inh inhalation BID 60 ea 6RF Quality Reporting (2019) Depression/Bipolar (159/160/161/177) PHQ-9: Total score: 2 Coding Level of Care Code Medicare Subsequent (G0439) Diagnoses Vitamin D deficiency E55.9 Mammogram normal Asthma J45.909 Vitamin B 12 deficiency E53.8 Osteopenia M85.80 Annual physical exam Z00.00 CPT Codes Advance Care Planning - Time spent: 1-15 minutes, not on file ([id number]) Advance Care Planning Advance Care Planning discussion: Exists, not on file Time spent: 1-15 minutes, not on file
== END 2023-09-14 12:21 | disposition home or self-care (01) ==
PROVIDERS: PCP Internal Medicine; Visit Provider Internal Medicine
DX: E55.9 Vitamin D deficiency, unspecified (principal); J45.909 Unspecified asthma, uncomplicated; E53.8 Deficiency of other specified B group vitamins; M85.80 Other specified disorders of bone density and structure, unspecified site; Z00.00 Encounter for general adult medical examination without abnormal findings
CPT/HCPCS: 1124F; G0439

== ENCOUNTER 2023-09-22 10:59 | Outpatient (REF) | payer MEDICARE, BC, SELFPAY ==
[2023-09-22 13:12] LABS: MANUAL DIFF FLAG NO
[2023-09-22 13:22] LABS: Basophils Absolute Auto 0.1 X10*3/uL (0.0-0.2); Basophils Percent Auto 1.3 % (0-2); Eosinophils Absolute Auto 0.3 X10*3/uL (0.0-0.4); Eosinophils Percent Auto 5.3 % (0-4); Hemoglobin 13.3 g/dl (12.0-16.0); Imm Gran Abs Auto 0.01 X10*3/uL (0.00-0.03); Imm Gran Pct Auto 0.2 % (0.0-0.4); Lymphocytes Absolute Auto 1.2 X10*3/uL (1.2-4.9); Lymphocytes Percent Auto 21.8 % (20-40); Mean Corpuscular HGB Conc 32.4 g/dl (31.0-35.0); Mean Corpuscular Volume 89.5 fL (80.0-98.0); Mean Platelet Volume 10.6 fL (9.4-12.3); Monocytes Absolute Auto 0.5 X10*3/uL (0.1-1.2); Monocytes Percent Auto 8.3 % (2-11); Neutrophils Absolute Auto 3.4 x10*3/uL (2.0-8.3); Neutrophils Percent Auto 63.1 % (45-73); Platelet Count 219 X10*3/uL (160-400); Red Blood Count 4.58 X10*6/uL (4.20-5.50); Red Cell Distribution Width 13.1 % (11.0-16.0); White Blood Count 5.5 X10*3/uL (4.8-10.8)
[2023-09-22 14:27] LABS: Alanine Aminotransferase 37 U/L (0-31); Alkaline Phosphatase 64 U/L (39-117); Anion Gap 13 (12-20); Aspartate Amino Transferase 31 U/L (5-31); Bilirubin Total 0.8 mg/dL (0.0-1.0); Blood Urea Nitrogen 13 mg/dL (9-16); Carbon Dioxide 29 mmol/L (22-29); Chloride 107 mmol/L (96-108); Cholesterol 162 mg/dL (<200); Estimated Glomerular Filt Rate > 60; Glucose Fasting 94 mg/dL (60-99); HDL Cholesterol 48 mg/dL (>40); LDL Cholesterol Calculated 95 mg/dL (<100); Potassium 4.6 mmol/L (3.3-5.1); Sodium 144 mmol/L (135-145); Total Protein 7.2 g/dL (6.5-8.0); Triglycerides 96 mg/dL (<150)
[2023-09-22 14:32] LABS: TSH reflex Free T4 2.27 uIU/mL (0.32-4.0); Vitamin D 25-OH Total 48.8 ng/mL (>30)
[2023-09-22 14:36] LABS: Folate 13.3 ng/mL (> or = 4.0); Vitamin B12 777 pg/mL (200-900)
== END 2023-09-22 11:00 | disposition home or self-care (01) ==
LOC: HO.HMGCLDS 10:59
PROVIDERS: PCP Internal Medicine; Visit Provider Internal Medicine
DX: Z00.00 Encounter for general adult medical examination without abnormal findings (principal); E55.9 Vitamin D deficiency, unspecified; J45.909 Unspecified asthma, uncomplicated; E53.8 Deficiency of other specified B group vitamins; M85.80 Other specified disorders of bone density and structure, unspecified site
CPT/HCPCS: 36415; 80053; 80061; 82306; 82607; 82746; 84443; 85025

== ENCOUNTER 2024-05-29 13:25 | Outpatient (REF) | payer MEDICARE, BC, SELFPAY ==
--- NOTE | ~2024-05-29 | MM_ITS ---
EXAMINATION: MM SCREENING DIGITAL BREAST TOMOSYNTHESIS, BILATERAL CLINICAL INFORMATION: Screening. Asymptomatic. COMPARISON: Mammography: Comparison is made with available priors TECHNIQUE: Digital breast mammography with tomosynthesis is performed in both the craniocaudal and mediolateral oblique views along with computer-aided detection (CAD). FINDINGS: The breasts are heterogeneously dense, which may obscure small masses (ACR BI-RADS breast composition Category c). There are no significant masses, abnormal calcifications, or other abnormalities. MM/MM tomosynthesis screening BI IMPRESSION: No mammographic evidence of malignancy. ASSESSMENT: BI-RADS BI-RADS 1 - Negative RECOMMENDATION: Routine annual mammography screening. 1 year F/U This examination should not preclude the clinical evaluation of a suspicious palpable abnormality. This patient's information was entered into a reminder system with a target due date for their next mammogram. Electronically signed by: Bina Alvarenga DO 06/07/2024 01:40 PM [facility]
== END 2024-05-29 13:26 | disposition home or self-care (01) ==
LOC: HO.MAMMO 13:25
PROVIDERS: PCP Internal Medicine; Visit Provider Internal Medicine
DX: Z12.31 Encounter for screening mammogram for malignant neoplasm of breast (principal)
CPT/HCPCS: 77063; 77067

== ENCOUNTER → 2024-05-29 13:30 | Outpatient (BNV) | payer MEDICARE, BC, SELFPAY | PROVIDERS: PCP Internal Medicine; Visit Provider Internal Medicine | DX: Z12.31 Encounter for screening mammogram for malignant neoplasm of breast (principal) | CPT/HCPCS: 77063; 77067 ==

== ENCOUNTER 2024-09-23 10:26 | Outpatient (REF) | payer MEDICARE, BC, SELFPAY ==
--- OUTSIDE RECORDS SUMMARY | 2024-09-23 12:08 | XMS_ITS | Continuity of Care Document ---
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 Name Role Phone Natali Macario MD Primary Care Physician [phone] [facility] [phone] Date(s): 08/30/24 - 09/06/24 [facility] [address] [place] [id number] Encounter Diagnosis Chronic venous hypertension (idiopathic) without complications of left lower extremity(Discharge Diagnosis) - 08/30/24 Chronic venous hypertension (idiopathic) without complications of right lower extremity(Discharge Diagnosis) - 08/30/24 Raynaud's disease(Discharge Diagnosis) - 08/30/24 Attending Physician: Jillian Pride NP Admitting Physician: Jillian Pride NP Referring Physician: Natali Macario MD Encounter Type: Office Visit Allergies, Adverse Reactions, Alerts Substance Criticality Severity Reaction Reaction Severity Status penicillin hives Active Adhesive Bandage redness, it fernanda, swelling at site Active oxyCODONE N+V - Nausea an d vomiting Active Latex redness, ichy, swelling at site Active Immunizations Given and Recorded Vaccine Date Status Refusal Reason SARS-CoV-2 (COVID-19) mRNA-1273 vaccine 10/14/20 G iven SARS-CoV-2 (COVID-19) mRNA-1273 vaccine 09/16/20 G iven Medications alendronate 70 mg oral tablet 12 each, 0 Refill(s), TAKE 1 TABLET BY MOUTH ONCE WEEKLY IN THE MORNING ON AN EMPTY STOMACH WITH A FULL GLASS OF WATER, 0 Refills, 02/23/24 11:43:00 AM EDT, Partial fill upon patient request if the prescription is for a schedule II opioid drug. Start Date: 02/23/24 Status: Ordered Repeat number: 1 biotin 5000 mcg oral tablet, disintegrating 2 tablet = 10,000 mcg, By Mouth, Daily, with meals, # 45 tablet, 0 Refills, Maintenance, 03/14/24 12:46:00 PM EDT, DIS Tablet, Partial fill upon patient request if the prescription is for a schedule II opioid drug. Start Date: 03/14/24 Status: Ordered Quantity: 45.0 Unit: tablet Repeat number: 1 Clindamycin 300 mg, By Mouth, Maintenance, 2 capsules prior to dentist, 07/28/17 11:13:07 AM EST Start Date: 07/28/17 Status: Ordered Repeat number: 1 cyclobenzaprine 10 mg oral tablet 10 mg, 1, tablet, By Mouth, 3 times a day, PRN, # 90 tablet, Refills 0, Tot. Refills 0, Maintenance, for spasm, 04/19/24 12:01:00 PM EDT, Route to Pharmacy Electronically, [facility]/pharmacy #[id number], Partial fill upon patient request if the prescription is for a schedule II opioid drug., 157.5, cm, 04/16/2410:47:00 EDT, Height, 86.5, kg, 03/18/24 14:53:00 EDT, Dry Weight Start Date: 04/19/24 Status: Ordered Quantity: 90.0 Unit: tablet Repeat number: 1 Flonase 50 mcg/inh nasal spray Daily, 0 Refills, Maintenance, 01/11/19 10:52:36 AM EDT Start Date: 01/11/19 Status: Ordered Repeat number: 1 gabapentin 300 mg oral capsule 180 each, 0 Refill(s), take 1 capsule at dinner, 2 capsules at bedtime, Refills 0, 05/11/23 9:06:00AM EDT, Partial fill upon patient request if the prescription is for a schedule II opioid drug. Start Date: 05/11/23 Status: Ordered Repeat number: 1 montelukast 10 mg oral tablet 90 each, 0 Refill(s), TAKE 1 TABLET BY MOUTH EVERYDAY AT BEDTIME, Refills 0, 02/23/24 11:43:00 AM EDT, Partial fill upon patient request if the prescription is for a schedule II opioid drug. Start Date: 02/23/24 Status: Ordered Repeat number: 1 Multivitamin 1, By Mouth, Daily, 0 Refills, Maintenance, 02/28/22 4:05:00 PM EDT, Partial fill upon patient request if the prescription is for a schedule II opioid drug. Start Date: 02/28/22 Status: Ordered Repeat number: 1 pantoprazole 40 mg oral delayed release tablet 90 each, 0 Refill(s), TAKE 1 TABLET BY MOUTH EVERY DAY, 0 Refills, 02/23/24 11:43:00 AM EDT Start Date: 02/23/24 Status: Ordered Repeat number: 1 ProAir HFA 90 mcg/inh inhalation aerosol with adapter 2, puffs, Inhalation, 4 times a day, Refills 0, Maintenance, 12/01/17 1:50:02 PM EDT Start Date: 12/01/17 Status: Ordered Repeat number: 1 Restasis Every 12 hours, 0 Refills, Maintenance, 11/30/21 1:36:00 PM EDT, Partial fill upon patient request if the prescription is for a schedule II opioid drug. Start Date: 11/30/21 Status: Ordered Repeat number: 1 tiZANidine 2 mg oral tablet 4 mg, 2, tablet, By Mouth, 3 times a day, # 90 tablet, Refills 0, Tot. Refills 0, Maintenance, 03/19/24 8:35:00 AM EDT, Route to Pharmacy Electronically, [facility], Partial fill upon patient request if the prescription is for a schedule II opioid drug., 157.5, cm, 03/19/24 3:37:00 EDT, Height, 86.5, kg, 03/18/24 14:53:00 EDT, Dry Weight Start Date: 03/19/24 Status: Ordered Quantity: 90.0 Unit: tablet Repeat number: 1 traMADol 50 mg oral tablet 2 tablet = 100 mg, By Mouth, Every 6 hours, PRN for pain, # 60 tablet, 0 Refills, Maintenance, 03/19/24 8:36:00 AM EDT, Tablet, [facility], Partial fill upon patient request if the prescription is for a schedule II opioid drug., 157.5, cm, 03/19/24 3:37:00 EDT, Height, 86.5, kg, 03/18/24 14:53:00 EDT, Dry Weight Start Date: 03/19/24 Status: Ordered Quantity: 60.0 Unit: tablet Repeat number: 1 Tylenol 8 Hour 650 mg oral tablet, extended release 2 tablet = 1,300 mg, By Mouth, Every 8 hours, 0 Refills, Maintenance, 04/16/24 10:48:00 AM EDT, Partial fill upon patient request if the prescription is for a schedule II opioid drug. Start Date: 04/16/24 Status: Ordered Repeat number: 1 Vitamin C 500 mg oral tablet, chewable 1 tablet = 500 mg, Chew, Daily, PRN Other, # 90 tablet, 0 Refills, Maintenance, 03/14/24 12:44:00 PMEDT, Chew Tablet, Partial fill upon patient request if the prescription is for a schedule II opioiddrug. Start Date: 03/14/24 Status: Ordered Quantity: 90.0 Unit: tablet Repeat number: 1 Vitamin D3 = 50 mcg, By Mouth, Daily, 0 Refills, Maintenance, 07/28/17 11:14:43 AM EST Start Date: 07/28/17 Status: Ordered Repeat number: 1 Wixela Inhub 100 mcg-50 mcg inhalation powder 1 inhalation, Inhalation, 2 times a day, rinse mouth and throat after use, 0 Refills, Maintenance, 01/06/20 2:01:00 PM EDT, Powder Start Date: 01/06/20 Status: Ordered Repeat number: 1 Problem List Condition Confirmation Course Effective Dates Status H ealth Status Informant Allergies Confirmed Active Asthma Confirmed Active GERD (gastroesophageal reflux disease) Confirmed Active Hypertension Confirmed Active Obese class I Confirmed Active Obesity Confirmed Active Osteoarthritis Confirmed Active Raynaud's disease Confirmed Active Venous insufficiency of both lower extremities Confirmed Active Varicose veins Confirmed Active Diagnosis Diagnosis Type Effective Dates Health Status Clinical Service Informant Chronic venous hypertension (idiopathic) without complications of left lower extremity Discharge Diagnosis 08/30/24 Chronic venous hypertension (idiopathic) without complications of right lower extremity Discharge Diagnosis 08/30/24 Raynaud's disease Discharge Diagnosis 08/30/24 Vital Signs Most recent to oldest [Reference Range]: 1 Height 157.5 cm (08/30/24 11:40 AM) Weight 82 kg (08/30/24 11:40 AM) Oxygen Saturation [94-100 %] 98 % (08/30/24 11:40 AM) Pulse Rate [55-90 bpm] 86 bpm (08/30/24 11:40 AM) Body Mass Index [18.5-24.99 kg/m2] 33.06 kg/m2 *>HHI* (08/30/24 11:40 AM) Blood Pressure [90-138/55-84 mm Hg] 160/ 80mm Hg *H* (08/30/24 11:40 AM) Blood pressure sites Arm, left (08/30/24 11:40 AM) Weight Obtained Via Patient/family state d (08/30/24 11:40 AM) Social History Social History Type Response Smoking Status Never smoker entered on: 07/28/17 Sex Sex Representation Female (finding) Note * Analy Murphy: PERFORM Event Display: Patient Education/Instruction Authored Date: Ambulatory [place] [address] Name: REBECCA AWAD : 1950?? Visit: 08/30/2024 11:27?? Ambulatory Visit Instructions ?? Your Care Team Primary Care Provider Natali Macario MD? This Visit Provider Jillian Pride NP Your Diagnosis Chronic venous hypertension (idiopathic) without complications of left lower extremity Chronic venous hypertension (idiopathic) without complications of right lower extremity Raynaud's disease Vitals Signs Pulse Rate: 86 bpm Height: 157.5 cm Systolic Blood Pressure:??160 mm Hg??High Weight: 82 kg Diastolic Blood Pressure: 80 mm Hg Body Mass Index:??33.06 kg/m2??Critical Oxygen Saturation: 98 % Body surface area: 1.89 Medications The list below reflects the information in our records and provided by you today along with any changes made during this visit. Please continue your medications until treatment is completed or stopped by your provider. If this is different from the information you have or there are other questions,please contact the prescribing provider. What How Much When Instructions Unchanged Acetaminophen (Tylenol 8 Hour 650 mg oral tablet, extended release) 2 tab(s) Oral Every 8 hours Unchanged Albuterol (ProAir HFA 90 mcg/ inh inhalation aerosol with adapter) 2 puff(s) Inhalation 4 times a day Unchanged Alendronate (alendronate 70 mg oral tablet) 12 each, 0 Refill(s), TAKE 1 TABLET BY MOUTH ONCE WEEKLY IN THE MORNING ON AN EMPTY STOMACH WITH A FULL GLASS OF WATER ?? Unchanged Ascorbic Acid (Vitamin C 500 mg oral tablet, chewable) 1 tab(s) Chew Daily as needed for Other Unchanged Biotin (biotin 5000 mcg oral tablet, disintegrating) 2 tab(s) Oral Daily with meals ?? Unchanged Cholecalciferol (Vitamin D3) 50 Microgram Oral Daily Unchanged Clindamycin 300 Milligram Oral 2 capsules prior to dentist ?? Unchanged Cyclobenzaprine (cyclobenzaprine 10 mg oral tablet) 1 tab(s) Oral 3 times a day as needed for for spasm Unchanged Cyclosporine Ophthalmic (Restasis) Every 12 hours Unchanged Fluticasone Nasal (Flonase 50 mcg/ inh nasal spray) Daily Unchanged Fluticasone-Salmeterol (Wixela Inhub 100 mcg-50 mcg inhalation powder) 1 inhalation Inhalation Twice a day rinse mouth and throat after use ?? Unchanged Gabapentin (gabapentin 300 mg oral capsule) 180 each, 0 Refill(s), take 1 capsule at dinner, 2 capsules at bedtime ?? Unchanged Montelukast (montelukast 10 mg oral tablet) 90 each, 0 Refill(s), TAKE 1 TABLET BY MOUTH EVERYDAY AT BEDTIME ?? Unchanged Multivitamin 1 Oral Daily Unchanged Pantoprazole (pantoprazole 40 mg oral delayed release tablet) 90 each, 0 Refill(s), TAKE 1 TABLET BY MOUTH EVERY DAY ?? Unchanged Tizanidine (tiZANidine 2 mg oral tablet) 2 tab(s) Oral 3 times a day Unchanged Tramadol (traMADol 50 mg oral tablet) 2 tab(s) Oral Every 6 hours as needed for for pain Medications and Immunizations Administered Medications Given During Visit No medications given during this visit.?? Allergies (NKA means No Known Allergies) Adhesive Bandage??(redness, itchy, swelling at site) Latex??(redness, ichy, swelling at site) oxyCODONE??(N+V - Nausea and vomiting) penicillin??(hives) Common Emergency Awareness Tips IS IT A STROKE? Act FAST and Check for these signs: FACE Does the face look uneven? ARM Does one arm drift down? SPEECH Does their speech sound strange? TIME Call at any sign of stroke ?? Heart Attack Signs Chest discomfort: Most heart attacks involve discomfort in the center of the chest and lasts more than a few minutes, or goes away and comes back. It can feel like uncomfortable pressure, squeezing, fullness or pain. Discomfort in upper body: Symptoms can include pain or discomfort in one or both arms, back, neck, jaw or stomach. Shortness of breath: With or without discomfort. Other signs: Breaking out in a cold sweat, nausea, or lightheaded. Remember, MINUTES DO MATTER. If you experience any of these heart attack warning signs, call to get immediate medical attention! ?? Smoking can increase your chances of developing chronic health problems and can cause harmful effects to other family members in your house. If you smoke, you are strongly encouraged to quit. Please call [facility] at [phone] or [phone] ([phone]) or log in to [email or web address] for referrals to smoking cessation programs. ?? The National Suicide Prevention Hotline is available 13/02 if you or someone you know needs to find a reason to keep living. By calling 7-197-750-WebAction (3523) you'll be connected to a skilled, trained counselor at a crisis center in your area. [facility] You can view and manage your care through the patient portal or by using a health care luther of your choosing. [employer] is a website that allows you to securely view your medical information including your hospital discharge summary, office visit summaries, medications and follow-up visits. You can also request appointments, renew medications, and request access to your medical information using a health care luther of your choosing, or just ask a question. You can enroll at [email or web address] or register during your next office visit. [facility], in keeping with [facility] guidance, no longer requires face masks for staff, patientsor visitors in most situations. Similiar to time spent indoors at other locations, there is the chance that you were exposed to repiratory viruses during your time with us (such as flu or COVID-19). If you develop symptoms concerning for a viral respiratory infection, please seek testing (and treatment if indicated) from your medical provider or home test kit. ?? Disclaimer: The information provided is of a general nature and is intended to be used in conjunction with the recommendations and advice of your health care practitioner. Every effort has been made to ensure that the information provided is accurate and complete at the time it is provided to you however, as your needs change, or, as new information becomes available, different or additional instructions may be required. ?? If you have questions, please consult with your primary care provider or pharmacist, as appropriate. This information is not intended to serve as substitution for assessment and evaluation by a qualified health care provider. If you do not have a primary care provider, you may find a [facility] provider by calling [facility] at [phone]. Patient Care team information Care Team Personnel Name: Natali Macario MD Position: [facility] Physician - Primary Care Member Role: PCP Address: [address] [place] [address] Telecom: Care Team Related Persons Name: GUILLE HICKS Name: MCKAY AWAD Insurance Providers Guarantor name: REBECCA AWAD Health Plan Information #: 2 Payer: [employer] SU[employer] Member Number: [id number] Policy Number: NA Group Number: [id number] Health Plan Information #: 1 Payer: MEDICARE PART B OUTPT Member Number: [id number] Policy Number: NA Group Number: NA
[2024-09-23 13:36] LABS: Alanine Aminotransferase 21 U/L (0-31); Albumin Level 4.2 g/dL (3.5-5.0); Alkaline Phosphatase 75 U/L (39-117); Anion Gap 16 (12-20); Aspartate Amino Transferase 28 U/L (5-31); Bilirubin Total 1.1 mg/dL (0.0-1.0); Blood Urea Nitrogen 16 mg/dL (9-16); Calcium 9.6 mg/dL (8.4-10.2); Carbon Dioxide 26 mmol/L (22-29); Chloride 108 mmol/L (96-108); Cholesterol 189 mg/dL (<200); Estimated Glomerular Filt Rate > 60; Glucose Fasting 94 mg/dL (60-99); HDL Cholesterol 61 mg/dL (>40); LDL Cholesterol Calculated 107 mg/dL (<100); Potassium 4.7 mmol/L (3.3-5.1); Sodium 145 mmol/L (135-145); Total Protein 7.8 g/dL (6.5-8.0); Triglycerides 106 mg/dL (<150)
[2024-09-23 13:57] LABS: Folate 10.4 ng/mL (> or = 4.0); Vitamin B12 547 pg/mL (200-900)
[2024-09-26 23:04] LABS: Vitamin D 25-OH, D2 <4 ng/mL; Vitamin D 25-OH, D3 42 ng/mL; Vitamin D 25-OH, Total 42 ng/mL (30-100)
== END 2024-09-23 10:27 | disposition home or self-care (01) ==
LOC: HO.HMGCLDS 10:26
PROVIDERS: PCP Internal Medicine; Visit Provider Internal Medicine
DX: E55.9 Vitamin D deficiency, unspecified (principal); J45.909 Unspecified asthma, uncomplicated; M85.80 Other specified disorders of bone density and structure, unspecified site; E53.8 Deficiency of other specified B group vitamins; Z13.6 Encounter for screening for cardiovascular disorders
CPT/HCPCS: 36415; 80053; 80061; 82306; 82607; 82746; 84443

== ENCOUNTER 2024-09-27 11:22 | Outpatient (AMB) | payer MEDICARE, BC, SELFPAY ==
[2024-09-27 11:31] VITALS: BP 124/80; PULSE 86; RESP 18; TEMP 37.1; O2SAT 97; BMI 34.0
--- NOTE | 2024-09-27 11:31 | A.OFFVIS_ITS ---
Intake Vital Signs 09/27/24 11:31 Height 5 ft 2 in Weight 186 lb BMI 34.0 BP 124/80 Blood Pressure Location Lt brachial Position Sitting Respiration 18 Pulse 86 Pulse Source Pulse Oximeter Temp 98.7 F Temp Source Oral Pulse Oximetry (%) 97 Oxygen Delivery Method Room Air Intake Visit Reasons: SWV G0439 Allergies adhesive tape [ADHESIVE TAPE] Allergy (Intermediate, Verified 09/27/24 12:03) BLISTERS/ITCH latex [LATEX] Allergy (Intermediate, Verified 09/27/24 12:03) BLISTERS/ITCH Penicillins [PENICILLINS] Allergy (Intermediate, Verified 09/27/24 12:03) HIVES/RASH sulfamethoxazole [From Bactrim] Allergy (Unknown, Verified 09/27/24 12:03) puritis trimethoprim [From Bactrim] Allergy (Unknown, Verified 09/27/24 12:03) puritis erythromycin base [ERYTHROMYCIN BASE] Adverse Reaction (Intermediate, Verified 09/27/24 12:03) N/V meloxicam Adverse Reaction (Unknown, Verified 09/27/24 12:03) body aches Medication List - Last Reconciled 09/27/24 by Natali Macario MD albuterol sulfate 90 mcg/actuation (ProAir HFA) 2 puffs inhalation QID ascorbic acid (vitamin C) mg PO celecoxib (Celebrex) 200 mg PO DAILY cholecalciferol (vitamin D3) 50 mcg PO DAILY clindamycin HCl 600 mg PO QID cyclosporine 0.05% drps ophthalmic (eye) fluticasone propion-salmeterol 100-50 mcg/dose (Wixela Inhub) 1 ea inhalation BID fluticasone propionate 50 mcg/actuation 2 sprays intranasal DAILY gabapentin 100 mg PO DAILY montelukast 10 mg PO BEDTIME pantoprazole 40 mg PO DAILY valacyclovir (Valtrex) 500 mg PO BID HPI SWV G0439 HPI Details Initiated the conversation about Advanced Directives. Advanced Directives help? patients prepare for current and future decisions about their medical treatment? and place of care. Discussed with patient that it is a process where a patients? current condition and prognosis are reviewed, their wishes for information? regarding their illness are elicited, and likely medical dilemmas are presented? and options discussed. The form can be amended as needed, reviewed yearly and? make changes as needed IPPE/AWV ? year old presents? for her ? Annual? Wellness Visit, initial visit.? Medical / Social History Reviewed? Past Medical History ?Yes? . ? [facility]? of Care / Care Team list updated ?Yes . ? Surgical/Hospitalization? History ?Yes . ? Current Medications? (including OTC and supplements) ?Yes . ? Family History ?Yes? . ? Tobacco? Control form ?Yes . ? AUDIT-C (Alcohol use) form? ?Yes . ? Illicit drug use in Social? History ?Yes . ? Current diagnosis of? depression? ?No ? Appropriate PHQ2/PHQ9? completed ?Yes . ? Data entered by ?Medical? Health Services Manager and reviewed by provider ? Fall Risk ? Fall? History? Have you had any falls with? injury in the past year? ?No . ? Have you had two or more? falls in the past year? ?No . ? Fall Risk Assessment: ?No? falls in the past year . ? HRA filled out by? the patient, reviewed by Provider and scanned. ? IPPE/AWV ? Balance? Romberg? ?Yes . ? Tandem? walk ?Yes . ? Walk and? Turn ?Yes . ? Rise from? sit to stand ?Yes . ?Vision? Corrective? lens ?Yes ? Vision? screen ? Up-to-date, has an appointment [] for vision? screening and glaucoma screening ?Hearing? Whisper? test ?pass .? Initiated the conversation about Advanced Directives. Advanced Directives help? patients prepare for current and future decisions about their medical treatment? and place of care. Discussed with patient that it is a process where a patients? current condition and prognosis are reviewed, their wishes for information? regarding their illness are elicited, and likely medical dilemmas are presented? and options discussed. The form can be amended as needed, reviewed yearly and? make changes as needed Written? Plan?Completed. See Patient? Documents. [facility] Medical History (Updated 09/27/24 @ 12:45 by Natali Macario MD) Normal breast exam Vitamin B 12 deficiency Annual physical exam Vitamin D deficiency Fatigue Lumbar stenosis Neuropathy Mammogram normal Normal colonoscopy Osteopenia PMR (polymyalgia rheumatica) Venous insufficiency Arthritis Acid reflux Seasonal allergies Asthma Surgical History H/O colonoscopy History of ligation of vein History of knee replacement H/O arthroscopy of knee History of section Family History Father No problems noted. Mother Heart disease Maternal Grandfather No problems noted. Maternal Grandmother No problems noted. Paternal Grandfather No problems noted. Paternal Grandmother Breast cancer Questionnaire Medicare Wellness Checkup [age] 70-79 What gender do you identify with?: female During the past 4 weeks, how much have you been bothered by emotional problems such as feeling anxious, depressed, irritable, sad or downhearted, and blue?: slightly During the past 4 weeks, has your physical & emotional health limited your social activities with family, friends, neighbors, or groups?: not at all During the past 4 weeks, how much bodily pain have you generally had?: very mild pain During the past 4 weeks, was someone available to help you if you needed & wanted help?: yes, as much as I wanted During the past 4 weeks, what was the hardest physical activity you could do for at least 2 minutes?: moderate Can you get to places out of walking distance without help? (For eg., can you travel alone on buses, taxis or drive your car?): Yes Can you go shopping for groceries or clothes without someone's help?: Yes Can you prepare your own meals?: Yes Can you do your housework without help?: Yes Because of any health problems, do you need the help of another person with your personal care needs such as eating, bathing, dressing or getting around the house?: No Can you handle your own money without help?: Yes During the past 4 weeks, how would you rate your health in general?: excellent During the past 4 weeks how have things been going for you?: pretty well Are you having difficulties driving your car?: no Do you always fasten your seat belt when you are in a car?: yes, usually During past 4 weeks, have you been bothered by the following: never: Sexual problems?, Trouble eating well?, Teeth or denture problems? and Problems using the telephone?, seldom: Falling or dizzy when standing up and sometimes: Tiredness or fatigue? Have you fallen 2 or more times in the past year?: No Are you afraid of falling?: Yes Are you a smoker?: no During the past 4 weeks, how many drinks of wine, beer, or other alcoholic be verages did you have?: 1 drink or less per week Do you exercise for about 20 minutes 3 or more times a week?: yes, some of the time Have you been given information to help with the following?: yes: Hazards in your house that might hurt you? and yes: Keeping track of your medications? How often do you have trouble taking medicines the way you have been told to take them?: I always take medicine as prescribed How confident are you that you can control & manage most of your health problems?: very confident What is your race?: White Mini Mental State Exam (MMSE) Orientation What is the (year) (season) (date) (day) (month)?: year, season, date, day and month Where are we (state) (county) (town or city) (hospital) (floor)?: state, county, town or city, hospital/clinic and floor Registration Name of 3 unrelated objects clearly and slowly, then ask patient to repeat all 3 of them. (1st repeat determines score. Make sure they can repeat all three): object 1, object 2 and object 3 Attention & Calculation (CHOOSE ONE) Spell WORLD backwards (DLROW): 5 letters Recall Ask patient to repeat the 3 items from question #3.: object 1, object 2 and object 3 Language Show patient a wristwatch & ask what it is. Repeat for pencil.: watch and pencil Ask the patient to repeat the phrase 'No ifs, ands, or buts' after you.: correct Ask the patient to 'take a piece of paper with their right hand' 'fold paper in half' 'place paper on floor': take paper in right hand, fold paper in half and place paper on floor Print the sentence 'CLOSE YOUR EYES' on a piece. If patient actually closes eyes then score.: followed written direction Give patient a blank piece of paper & ask to write a sentence. Score if it contains a noun & verb.: sentence contains subject and verb Score Score: 29 Activity of Daily Living Bathing - sponge bath, tub bath or shower: receives no assistance (gets in/out by self, if usual bathing means Dressing - getting clothes from closets & drawers, including inner/outer garments & fasteners.: gets clothes & gets completely dressed without help Toileting - going to the 'toilet room' for urine/bowel elimination & cleaning self/arranging clothes: goes to toilet room, cleans self, arranges clothes without help Transfer: moves in & out of bed and chair without help (may use support object) Continence: controls urination/bowel movements completely by self Feeding: feeds self without help Total Score: 0 Information obtained from: patient Using telephone: independent Traveling: independent Shopping: independent Preparing meals: independent Housework: independent Taking medicine: independent Managing money: independent PHQ-9 Over the last 2 weeks, how often have you been bothered by any of the following problems? 1. Little interest or pleasure in doing things: not at all 2. Feeling down, depressed, or hopeless: not at all 3. Trouble falling or staying asleep, or sleeping too much: not at all 4. Feeling tired or having little energy: more than half the days 5. Poor appetite or overeating: not at all 6. Feeling bad about yourself - or that you are a failure or have let yourself or your family down: more than half the days 7. Trouble concentrating on things, such as reading the newspaper or watching television: not at all 8. Moving or speaking so slowly that other people could have noticed. Or the opposite - being so fidgety or restless that you have been moving around a lot m ore than usual: not at all 9. Thoughts that you would be better off or of hurting yourself in some way: not at all Total score: 4 Depression Screening Interpretation: Negative Depression Screening Done: Yes 27473 - PHQ-9 Billing: Yes Source: Developed by Drs. Mikael Walden, Mindy Loredo, Gerson Francois and colleagues, with an educational haley from [employer]. Review of Systems Const All systems reviewed & are unremarkable except as noted in HPI and below Reports no additional complaints Eyes Reports no additional complaints ENT Reports no additional complaints Card Reports no additional complaints Resp Reports no additional complaints GI Reports no additional complaints Reports no additional complaints Musc Reports no additional complaints Physical Exam Vital Signs: Last Vital Signs Temp 98.7 F 09/27/24 11:31 Pulse 86 09/27/24 11:31 Resp 18 09/27/24 11:31 BP 124/80 09/27/24 11:31 Pulse Ox 97 09/27/24 11:31 Oxygen Delivery Method Room Air 09/27/24 11:31 BMI result Body Mass Index 34.0 Const General: no acute distress HEENT Head: Yes normal to inspection Ears: hearing grossly normal bilaterally Eyes General: appearance normal, both eyes and all related structures Neck Neck: Yes no lymphadenopathy and Yes supple Resp Effort & Inspection: normal respiratory effort Auscultation: clear to auscultation bilaterally Cardio Rhythm: regular rhythm Heart sounds: S1 normal heart sound present and S2 normal heart sound present GI Inspection: Yes normal to inspection Palpation (GI): Soft to palpation Percussion: Yes normal to percussion Auscultation: normal bowel sounds Extrem General: Yes no clubbing, cyanosis or edema Assessment & Plan Assessment & Plan (1) Annual physical exam: Code(s): Z00.00 - Encounter for general adult medical examination without abnormal findings Plan: well balanced diet, regular exercise discussed (2) Lumbar stenosis: Comment: s/p fusion L1-2 Dr. Hidalgo 02/2024 Code(s): M48.061 - Spinal stenosis, lumbar region without neurogenic claudication Plan: cont PT, exercise (3) Asthma: Comment: Controlled on Wixela, using albuterol once or twice a month Code(s): J45.909 - Unspecified asthma, uncomplicated Plan: Continue Wixela (4) Fatigue: Code(s): R53.83 - Other fatigue Plan: Check CBC and iron (5) Vitamin D deficiency: Code(s): E55.9 - Vitamin D deficiency, unspecified Plan: Continue vitamin-D supplement (6) Vitamin B 12 deficiency: Code(s): E53.8 - Deficiency of other specified B group vitamins Plan: Continue vitamin B12 supplement Orders: Orders IRON PROFILE Today R53.83 - Other fatigue, Z00.00 - Encounter for general adult medical examination without abnormal findings Complete Blood Count Auto Diff Today R53.83 - Other fatigue, Z00.00 - Encounter for general adult medical examination without abnormal findings Comprehensive [place]. Panel Fast 1 Year E53.8 - Deficiency of other specified B group vitamins, E55.9 - Vitamin D deficiency, unspecified, Z00.00 - Encounter for general adult medical examination without abnormal findings Lipid Panel 1 Year E53.8 - Deficiency of other specified B group vitamins, E55.9 - Vitamin D deficiency, unspecified, Z00.00 - Encounter for general adult medical examination without abnormal findings TSH reflex Free T4 1 Year E53.8 - Deficiency of other specified B group vitamins, E55.9 - Vitamin D deficiency, unspecified, Z00.00 - Encounter for general adult medical examination without abnormal findings Vitamin B12 and Folate 1 Year E53.8 - Deficiency of other specified B group vitamins, E55.9 - Vitamin D deficiency, unspecified, Z00.00 - Encounter for general adult medical examination without abnormal findings Complete Blood Count Auto Diff 1 Year E53.8 - Deficiency of other specified B group vitamins, E55.9 - Vitamin D deficiency, unspecified, Z00.00 - Encounter for general adult medical examination without abnormal findings Vitamin D 25-OH Total 1 Year E53.8 - Deficiency of other specified B group vitamins, E55.9 - Vitamin D deficiency, unspecified, Z00.00 - Encounter for general adult medical examination without abnormal findings Quality Reporting (2019) Depression/Bipolar (159/160/161/177) PHQ-9: Total score: 4 Coding Level of Care Code Medicare Subsequent (G0439) Diagnoses Annual physical exam Z00.00 Lumbar stenosis M48.061 Asthma J45.909 Fatigue R53.83 Vitamin D deficiency E55.9 Vitamin B 12 deficiency E53.8 CPT Codes Advance Care Planning - Advance Care Planning discussion: On file, no changes ([id number]) Additional Codes PHQ-9 - 06495 - PHQ-9 Billing: Yes ([id number]) Advance Care Planning Advance Care Planning discussion: On file, no changes Forms completed: Health Care Proxy Did not discuss due to Cultural/Spiritual beliefs: Yes
--- OUTSIDE RECORDS SUMMARY | 2024-09-27 13:13 | XMS_ITS | Continuity of Care Document ---
Author Organization [facility] Address [address] [place] [id number]- Care Team Providers Care Mine Engineering Manager Name Role Phone Natali Macario MD Primary Care Physician [phone] [id number] Date(s): 08/26/24 - 09/25/24 [facility] [address], [place] [address] Attending Physician: Paulette Page Admitting Physician: Paulette Page Referring Physician: AdmtrPaulette Encounter Type: Triage Allergies, Adverse Reactions, Alerts Substance Criticality Severity Reaction Reaction Severity Status penicillin hives Active Adhesive Bandage redness, it fernanda, swelling at site Active Latex redness, ichy, swelling at site Active oxyCODONE N+V - Nausea an d vomiting Active Immunizations Given and Recorded Vaccine Date [...] 12:01:00 PM EDT, Route to Pharmacy Electronically, [facility]/pharmacy #[id number], Partial fill upon patient request if the [...] 8:35:00 AM EDT, Route to Pharmacy Electronically, [facility], Partial fill upon patient [...] Refills, Maintenance, 03/19/24 8:36:00 AM EDT, Tablet, [facility], Partial fill upon patient request if [...] extremities Confirmed Active Varicose veins Confirmed Active Social History Social History Type Response Smoking Status Never smoker entered on: 07/28/17 Sex Sex Representation Female (finding) Patient Care team information Care Team Personnel Name: Natali Macario MD Position: [facility] Physician - Primary Care Member Role: PCP Address: [address] [place] [address]- Telecom: Care Team Related Persons Name: GUILLE HICKS Name: MCKAY AWAD Insurance Providers Guarantor name: REBECCA AWAD Health Plan Information #: 1 Payer: MEDICARE PART B OUTPT Member Number: NA Policy Number: NA Group Number: NA Health Plan Information #: 2 Payer: BLUE MEDICARE SUPPL Member Number: NA Policy Number: NA Group Number: NA
== END 2024-09-27 12:59 | disposition home or self-care (01) ==
PROVIDERS: PCP Internal Medicine; Visit Provider Internal Medicine
DX: Z00.00 Encounter for general adult medical examination without abnormal findings (principal); M48.061 Spinal stenosis, lumbar region without neurogenic claudication; J45.909 Unspecified asthma, uncomplicated; R53.83 Other fatigue; E55.9 Vitamin D deficiency, unspecified; E53.8 Deficiency of other specified B group vitamins

== ENCOUNTER 2024-09-27 11:22 | Outpatient (REF) | payer MEDICARE, BC, SELFPAY ==
[2024-09-27 16:18] LABS: MANUAL DIFF FLAG NO
[2024-09-27 16:40] LABS: Iron 60 mcg/dL (30-160); Percent Iron Saturation 22 % (15-50); Total Iron Binding Capacity 268 mcg/dL (228-428); Unsaturated Iron Binding 208 ug/dL
[2024-09-27 18:06] LABS: Basophils Absolute Auto 0.1 X10*3/uL (0.0-0.2); Basophils Percent Auto 1.1 % (0-2); Eosinophils Absolute Auto 0.3 X10*3/uL (0.0-0.4); Eosinophils Percent Auto 3.4 % (0-4); Hematocrit 42.5 % (37.0-47.0); Hemoglobin 13.9 g/dl (12.0-16.0); Imm Gran Abs Auto 0.02 X10*3/uL (0.00-0.03); Imm Gran Pct Auto 0.3 % (0.0-0.4); Lymphocytes Absolute Auto 1.3 X10*3/uL (1.2-4.9); Lymphocytes Percent Auto 18.3 % (20-40); Mean Corpuscular HGB Conc 32.7 g/dl (31.0-35.0); Mean Corpuscular Hemoglobin 29.4 pg (27.0-33.0); Mean Corpuscular Volume 89.9 fL (80.0-98.0); Mean Platelet Volume 10.2 fL (9.4-12.3); Monocytes Absolute Auto 0.6 X10*3/uL (0.1-1.2); Monocytes Percent Auto 8.2 % (2-11); Neutrophils Percent Auto 68.7 % (45-73); Platelet Count 278 X10*3/uL (160-400); Red Blood Count 4.73 X10*6/uL (4.20-5.50); Red Cell Distribution Width 13.2 % (11.0-16.0); White Blood Count 7.3 X10*3/uL (4.8-10.8)
== END 2024-09-27 11:23 | disposition home or self-care (01) ==
LOC: HO.HMGCLDS 11:22
PROVIDERS: PCP Internal Medicine; Visit Provider Internal Medicine
DX: Z00.00 Encounter for general adult medical examination without abnormal findings (principal); R53.83 Other fatigue; M48.061 Spinal stenosis, lumbar region without neurogenic claudication; J45.909 Unspecified asthma, uncomplicated; E55.9 Vitamin D deficiency, unspecified; E53.8 Deficiency of other specified B group vitamins
CPT/HCPCS: 36415; 83540; 85025; 96127

== ENCOUNTER 2025-06-06 12:17 | Outpatient (REF) | payer MEDICARE, BC, SELFPAY ==
--- NOTE | ~2025-06-06 | XR_ITS ---
EXAMINATION: XR CHEST CLINICAL INFORMATION: R05.9 - Cough, unspecified COMPARISON: None available. TECHNIQUE: 2 views of the chest were obtained. FINDINGS: The cardiomediastinal silhouette is within normal limits. The lungs are symmetrically expanded. There is a hazy opacity projected over the right upper lung, measuring up approximately 4.4 cm. Similar findings were seen on the prior x-ray. This could be related to overlapping densities/right first rib/costochondral structures. No new focal consolidation is seen. No effusion. No edema. No pneumothorax. Multifocal thoracolumbar spondylosis. Partially imaged metallic density posteriorly in the inferior margin of the lateral image.,. XR/XR chest 2V IMPRESSION: Hazy opacity projected right upper lung, which appear similar to the prior x-ray. This could be related to overlapping densities from the first rib/costochondral structures. This can be confirmed with CT scan, as clinically indicated. No acute findings otherwise seen. Electronically signed by: Catarino Marte MD 06/06/2025 04:48 PM [facility]
--- OUTSIDE RECORDS SUMMARY | 2025-06-06 19:24 | XMS_ITS | Encounter Summary ---
Author Organization [facility] Address [address] [place] [address] Phone Care Team Providers Care Crisis Manager Name Role Phone Christy Watts Unavailable [phone] Alonzo Murillo MD Unavailable [phone] Betito Singh DO Unavailable [phone] Tatiana Vidal PA-C Unavailable [phone] Unknown, Unknown Primary Care Provider Betito Fox DO Primary Care Provider [phone] Natali Macario MD Primary Care Provider [phone] Reason for Referral * Physical Therapy (Routine) - Closed Specialty Diagnoses / Procedures Referred By Lis adkins Referred To Contact Physical Therapy Diagnoses Encounter for rehabilitation s/p right tkr 10/07 Procedures physical therapy System, Provider Not In, [facility] [id number] [place] [address] Phone: tel: Referral ID Status Reason Start Date Expiration Date Visits Re quested Visits Authorized [id number] Closed 08/10/2017 07/23/2018 50 50 Encounter Details Date Type Department Care Team (Latest Contact Info) Description 07/14/2017 Transcribe Orders [facility] [address] [place] [address] Farhan Lai MD [address] [place] [address] Encounter for rehabilitation (Primary Dx) Social History Tobacco Use Types Packs/Day Years Used Date Smoking Tobacco: Never Assessed Comments Unknown Sex and Gender Information Value Date Recorded Sex Assigned at Not on file Legal Sex Female 10:05 PM EDT Gender Identity Not on file Sexual Orientation Not on file documented as of this encounter Plan of Treatment Not on file documented as of this encounter Procedures Procedure Name Priority Date/Time Associated Diagnosis Comments AMB REFERRAL TO [facility] PHYSICAL THERAPY Routine 08/11/2017 5:58 PM EST Encounter for rehabilitation documented in this encounter Results * Ambulatory referral to [facility] Physical Therapy (08/11/2017 5:58 PM EST) us Provider Not In System PhD AMB [facility] REFERRALS Fin al Result documented in this encounter Visit Diagnoses Diagnosis Encounter for rehabilitation- Primary documented in this encounter Additional Health Concerns Infection Onset Date Last Indicated Resolved Time CoV-Risk 07/19/2023 07/19/2023 07/30/2023 1:22 AM EST documented as of this encounter Care Teams Crisis Manager Relationship Specialty Start Date End Date Unknown, Unknown, [address] [place] [address] Orthopedics & Sports Medicine, [place] [address] PCP - General 07/14/17 07/26/17 Betito Singh DO [address] [place] [address] PCP - General 07/27/17 07/18/23 Natali Macario [place] [address] PCP - General Internal Medicine 07/19/23 Christy Watts PA [facility] [place] [address] Historical LMR Provider 05/11/17 2 Alonzo Murillo MD [address] [place] [phone] [email or web address] Historical LMR Provider 05/11/17 07/31/21 Betito Singh DO [address] [place] [address] Historical LMR Provider 05/11/17 Tatiana Vidal PA-C [address] [place] [address] [facility], [place] [address] [email or web address] Historical LMR Provider 05/11/17 07/31/21 documented as of this encounter Additional Source Comments The information contained in this document represents components of the legal health record. It is not the complete legal health record.[facility]
--- OUTSIDE RECORDS SUMMARY | 2025-06-06 19:24 | XMS_ITS | Encounter Summary ---
Author Organization [facility] Address [address] [place] [address] Phone Care Team Providers Care Shipping And Receiving Weigher Name Role Phone Christy Watts Unavailable [phone] Alonzo Murillo MD Unavailable [phone] Betito Singh DO Unavailable [phone] Tatiana Vidal PA-C Unavailable [phone] Betito Singh DO Primary Care Provider [phone] Natali Macario MD Primary Care Provider [phone] Reason for Referral * Physical Therapy (Routine) - Closed Specialty Diagnoses / Procedures Referred By Lis adkins Referred To Contact Physical Therapy Diagnoses Sciatica of left side System, Provider Not In, [facility] [address] [address] Phone: tel: Referral ID Status Reason Start Date Expiration Date Visits Re quested Visits Authorized [id number] Closed 12/27/2017 07/23/2018 25 25 Encounter Details Date Type Department Care Team (Latest Contact Info) Description 11/23/2017 Transcribe Orders [facility] [address] [place] [address] Betito Singh DO [address] [place] [address] [phone] Encounter for rehabilitation (Primary Dx) Social History [...] Date/Time Associated Diagnosis Comments AMB REFERRAL TO [facility] PHYSICAL THERAPY Routine 12/28/2017 8:57 AM EDT Encounter for rehabilitation documented in this encounter Results * Ambulatory referral to [facility] Physical Therapy (12/28/2017 8:57 AM EDT) us Provider Not In System PhD AMB [facility] REFERRALS Fin al Result documented in this encounter Visit Diagnoses Diagnosis Encounter for rehabilitation- Primary documented in this encounter Additional Health Concerns Infection Onset Date Last Indicated Resolved Time CoV-Risk 07/19/2023 07/19/2023 07/30/2023 1:22 AM EST documented as of this encounter Care Teams Shipping And Receiving Weigher Relationship Specialty Start Date End Date Betito Singh DO [address] [place] [address] PCP - General 07/27/17 07/18/23 Natali Macario MD [address] [place] [address] PCP - General Internal Medicine 07/19/23 Christy Watts PA [address] [place] [address] Historical LMR Provider 05/11/17 2 Alonzo Murillo MD [address] [place] [address] [email or web address] Historical LMR Provider 05/11/17 07/31/21 Betito Singh DO [address] [place] [address] Historical LMR Provider 05/11/17 Tatiana Vidal PA-C [address] [place] [address] Orthopedics & Sports Medicine, [facility] [place] [address] [email or web address] Historical LMR Provider 05/11/17 07/31/21 documented as of this encounter Additional Source Comments The information contained in this document represents components of the legal health record. It is not the complete legal health record.[facility]
--- OUTSIDE RECORDS SUMMARY | 2025-06-06 19:24 | XMS_ITS | Clinical Summary ---
Author Organization [facility] Address [address] [place] [address] Phone Care Team Providers Care Emts Name Role Phone Natali Macario MD Primary Care Provider [phone] Allergies Active Allergy Reactions Criticality Noted Date Comments Latex Itching 07/19/2023 Penicillin Hives 07/19/2023 Medications IBUPROFEN (ADVIL ORAL) Active NICOTINE POLACRILEX (THRIVE NICOTINE BUCL) Activ e MONTELUKAST SODIUM (SINGULAIR ORAL) Active HYDROCHLOROTHIA ZIDE ORAL Active Medication-Free Text Protonix Active aspirin (ASPIR-81) 81 MG EC tablet Active TURMERIC ROOT EXTRACT ORAL Active Medication-Free Text Glucosamine Active alendronate (FOSAMAX) 70 MG tablet TAKE 1 TABLET BY MOUTH ONCE WEEKLY IN THE MORNING ON AN EMPTY STOMACH WITH A FULL GLASS OF WATER 3 Active celecoxib (CELEBREX) 200 MG capsule Take 250 mg by mouth daily. Active gabapentin (NEURONTIN) 300 MG capsule Take 900 mg by mouth nightly at bedtime. 3 capsule a day Active pantoprazole (PROTONIX) 40 MG tablet Take 1 tablet by mouth every morning. 3 Active montelukast (SINGULAIR) 10 mg tablet take 1 tablet by mouth everyday at bedtime 3 Active fluticasone propionate (FLONASE) 50 mcg/actuation nasal spray 1 spray by Nasal route daily. Active fluticasone propion-salmete roL (ADVAIR DISKUS) 100-50 mcg/dose DISKUS Inhale 100 mcg/actuation of fluticasone into the lungs. Active albuterol 90 mcg/actuation inhaler Inhale 2 puffs into the lungs every 6 (six) hours as needed for wheezing. Active cycloSPORINE (RESTASIS) 0.05 % suspension Place 1 drop into each eye 2 (two) times a day. Active Active Problems No known active problems Social History Tobacco Use Types Packs/Day Years Used Date Smoking Tobacco: Never Assessed Education Answer Date Recorded Are you interested in more education? Not on kayleen e 11/18/2022 Are you concerned about learning? Not on file 11/18/2022 No 11/18/2022 No 11/18/2022 Digital Access Answer Date Recorded No 12/17/2022 No 12/17/2022 Reliable internet access at home? Not on file 12/17/2022 Device with a working camera? Not on file Comments Unknown Sex and Gender Information Value Date Recorded Sex Assigned at Not on file Legal Sex Female 10:05 PM EDT Gender Identity Not on file Sexual Orientation Not on file Last Filed Vital Signs Vital Sign Reading Time Taken Comments Blood Pressure 169/83 07/19/2023 5:25 PM EST Pulse 67 07/19/2023 5:25 PM EST Temperature 36 C (96.8 F) 07/19/2023 5:25 PM EST Respiratory Rate - - Oxygen Saturation 95% 07/19/2023 5:25 PM EST Inhaled Oxygen Concentration - - Weight 80.8 kg (178 lb 3.2 oz) 11/27/2015 1:59 A M EDT Height 157.5 cm (5' 2 ) 11/27/2015 1:59 AM EDT Body Mass Index 32.59 11/27/2015 1:59 AM EDT Plan of Treatment Health Maintenance Due Date Last Done Comments Adult Td,Tdap Booster 1948 LIPID PANEL 1948 POTASSIUM LEVEL 1948 DEPRESSION SCREENING 1960 SMOKING Hx and SMOKELESS TOBACCO SCREENING 1961 HEPATITIS C SCREENING 1966 PNEUMOCOCCAL VACCINES (50+ years) (1 of 1 - PCV) 1998 ZOSTER VACCINES (1 of 2) 1998 OSTEOPOROSIS SCREENING INITIAL (ONE-TIME) 2013 RSV VACCINE (1 - 1-dose 75+ series) 2023 INFLUENZA VACCINE (#1) 2025 0, 05/20/2019, 05/16/2018, Additional history exists COVID-19 VACCINE ( season) 2025 09/16/2020 HEPATITIS A VACCINES Aged Out No long er eligible based on patient's age to complete this topic HIB VACCINES Aged Out No longer eligi ble based on patient's age to complete this topic IPV VACCINES Aged Out No longer eligi ble based on patient's age to complete this topic MENINGOCOCCAL VACCINES (ACWY) Aged Out No longer eligible based on patient's age to complete this topic MENINGOCOCCAL VACCINES (B) Aged Out N o longer eligible based on patient's age to complete this topic Medical Devices Not on file Insurance MEDICARE PART A & B [facility] MEDICARE PART A & B [facility] MEDICARE PART A & B [facility] MEDICARE [facility] A & B [facility] MEDICARE [facility] A & B [facility] MEDICARE PART A & B [facility] MEDICARE PART A & B [id number] [place] [address] MEDICARE PART A & B [id number] [place] [address] MEDICARE PART A & B [facility] Care Teams Emts Relationship Specialty Start Date End Date Natali Macario MD [address] [place] [address] PCP - General Internal Medicine 07/19/23 Additional Source Comments The information contained in this document represents components of the legal health record. It is not the complete legal health record.[facility]
== END 2025-06-06 12:18 | disposition home or self-care (01) ==
LOC: HO.HMGCX 12:17
PROVIDERS: PCP Internal Medicine; Visit Provider Internal Medicine
DX: J45.901 Unspecified asthma with (acute) exacerbation (principal); R07.89 Other chest pain
CPT/HCPCS: 71046; 94640; 96127; 99212

== ENCOUNTER 2025-06-06 12:17 | Outpatient (AMB) | payer MEDICARE, BC, SELFPAY ==
[2025-06-06 12:19] VITALS: BP 132/78; PULSE 87; RESP 17; TEMP 36.3; O2SAT 98; BMI 34.0
--- NOTE | 2025-06-06 12:19 | A.OFFPC_ITS ---
Vital Signs 06/06/25 12:19 Height 5 ft 2 in Weight 186 lb BMI 34.0 BP 132/78 Blood Pressure Location Lt brachial Position Sitting Respiration 17 Pulse 87 Pulse Source Pulse Oximeter Temp 97.4 F Temp Source Oral Pulse Oximetry (%) 98 Oxygen Delivery Method Room Air Intake Visit Reasons: fatigue and wheezing Intake Note: Pt is here today for a sick visit. Pt c/o fatigue and wheezing later in a day. Allergies adhesive tape (ADHESIVE TAPE) Allergy (Intermediate, Verified 06/06/25 12:22) BLISTERS/ITCH latex (LATEX) Allergy (Intermediate, Verified 06/06/25 12:22) BLISTERS/ITCH Penicillins (PENICILLINS) Allergy (Intermediate, Verified 06/06/25 12:22) HIVES/RASH sulfamethoxazole (From Bactrim) Allergy (Unknown, Verified 06/06/25 12:22) puritis trimethoprim (From Bactrim) Allergy (Unknown, Verified 06/06/25 12:22) puritis erythromycin base (ERYTHROMYCIN BASE) Adverse Reaction (Intermediate, Verified 06/06/25 12:22) N/V meloxicam Adverse Reaction (Unknown, Verified 06/06/25 12:22) body aches Medication List - Last Reconciled 06/06/25 by Natali Macario MD albuterol sulfate 90 mcg/actuation (ProAir HFA) 2 puffs inhalation QID ascorbic acid (vitamin C) mg PO celecoxib (Celebrex) 200 mg PO DAILY cholecalciferol (vitamin D3) 50 mcg PO DAILY clindamycin HCl 600 mg PO QID cyclosporine 0.05% drps ophthalmic (eye) fluticasone propion-salmeterol 100-50 mcg/dose (Wixela Inhub) 1 ea inhalation BID fluticasone propion-salmeterol 250-50 mcg/dose (Wixela Inhub) 1 inh inhalation BID fluticasone propionate 50 mcg/actuation 2 sprays intranasal DAILY gabapentin 100 mg PO DAILY montelukast 10 mg PO BEDTIME pantoprazole 40 mg PO DAILY valacyclovir (Valtrex) 500 mg PO BID Tobacco use date assessed: 06/06/25 Fall risk assessment: No Falls in past year Last assessed Fall Risk: 06/06/25 Dental Screening Dental Screen Date: 06/06/25 Did you have a dental visit in the last 12 months?: Yes Did you have a dental problem in the last 6 months where you did not have access to dental care?: No Was dental information given to patient?: Patient has dentist HPI fatigue and wheezing HPI Details Pt presents complaining of increasing wheezing and intermittent dry cough for the last 4 weeks. Patient had an episode of nasal congestion postnasal drip general malaise but no fever or chills with productive cough and wheezing for 1 week which resolved for 2 weeks but now she complains of recurrent cough dry, chest tightness and wheezing worse at night, using Albuterol more often up to twice a day despite taking Wixela 100 mcg twice a day. Patient denies pleurisy fever chills PND orthopnea chest pains palpitations sinus congestion. She reports having seasonal allergies mainly in the spring but recently in the fall. [facility] Medical History Normal breast exam Vitamin B 12 deficiency Annual physical exam Vitamin D deficiency Fatigue Lumbar stenosis Neuropathy Mammogram normal Normal colonoscopy Osteopenia PMR (polymyalgia rheumatica) Venous insufficiency Arthritis Acid reflux Seasonal allergies Asthma Surgical History H/O colonoscopy History of ligation of vein History of knee replacement H/O arthroscopy of knee History of section Family History Father No problems noted. Mother Heart disease Maternal Grandfather No problems noted. Maternal Grandmother No problems noted. Paternal Grandfather No problems noted. Paternal Grandmother Breast cancer Social History Housing: House Patient Tobacco Use Status: Never used Tobacco e-Cigarette/Vaping Use: Never Used Current occupational status: retired Cognitive needs: No Hearing needs: No Vision needs: No Questionnaire PHQ-9 Over the last 2 weeks, how often have you been bothered by any of the following problems? 1. Little interest or pleasure in doing things: not at all 2. Feeling down, depressed, or hopeless: not at all 3. Trouble falling or staying asleep, or sleeping too much: not at all 4. Feeling tired or having little energy: more than half the days 5. Poor appetite or overeating: not at all 6. Feeling bad about yourself - or that you are a failure or have let yourself or your family down: more than half the days 7. Trouble concentrating on things, such as reading the newspaper or watching television: not at all 8. Moving or speaking so slowly that other people could have noticed. Or the opposite - being so fidgety or restless that you have been moving around a lot more than usual: not at all 9. Thoughts that you would be better off or of hurting yourself in some way: not at all Total score: 4 Depression Screening Interpretation: Negative Depression Screening Done: Yes 22156 - PHQ-9 Billing: Yes Source: Developed by Drs. Mikael Walden, Mindy Loredo, Gerson Francois and colleagues, with an educational haley from [employer]. Thrive Questionnaire Date Thrive assessed: 06/06/25 I am a: Patient What is your living situation today?: I have a steady place to live Within the past 12 months, did the food you bought not last and you didn't have the money to get more?: Never true Within the past 12 months, did you worry whether your food would run out before you got money to buy more?: Never true Do you have trouble paying for medicines?: No Do you have trouble getting transportation to medical appointments?: No Do you have trouble paying your heating and electricity bill?: No Do you have trouble taking care of your child, family member or friend?: No Do you have trouble with day-to-day activities such as bathing, preparing meals, shopping, managing finances, etc.?: No Are you currently unemployed and looking for a job?: No Are you interested in more education?: No Please select the resources that you would like help with: None Currently or been in a relationship where the following occur: No concerns reported THRIVE Score: 0 AUDIT C Alcohol Use Questionnaire (AUDIT-C) 1. How often do you have a drink containing alcohol?: 2-4 times a month Total Score: 2 KELSEY-7 AMB Questionnaire KELSEY-7 Date KELSEY - 7 assessed: 06/06/25 Feeling nervous, anxious, or on edge: 0 = Not at all Not being able to stop or control worryin = Not at all Worrying too much about different things: 1 = Several days Trouble relaxin = Not at all Being so restless that it is hard to sit still: 0 = Not at all Becoming easily annoyed or irritable: 1 = Several days Feeling afraid as if something awful might happen: 0 = Not at all Total KELSEY-7 score (0-4 normal; 5-9 mild; 10-14 moderate; 15-21 severe): 2 Source: Developed by Drs. Mikael Walden, Mindy Loredo, Gerson Francois and colleagues, with an educational haley from [employer]. KELSEY-7 Assessment Billing KELSEY-7 Assessment Tool: KELSEY-7 Assessment 46021 Review of Systems Const All systems reviewed & are unremarkable except as noted in HPI and below ENT Reports no additional complaints Card Reports no additional complaints Resp Reports no additional complaints GI Reports no additional complaints Reports no additional complaints Physical exam (Primary Care) Vital Signs: Last Vital Signs Temp 97.4 F 06/06/25 12:19 Pulse 87 06/06/25 12:19 Resp 17 06/06/25 12:19 BP 132/78 06/06/25 12:19 Pulse Ox 98 06/06/25 12:19 Oxygen Delivery Method Room Air 06/06/25 12:19 BMI result Body Mass Index 34.0 Tobacco/Smoking Status: Tobacco use Status Tobacco use date assessed 06/06/25 06/06/25 12:26 Patient Tobacco Use Status Never used Tobacco 06/06/25 12:26 e-Cigarette/Vaping Use Never Used 06/06/25 12:26 PHQ-9: PHQ-9 Score PHQ-9: Total score 4 06/06/25 12:44 Depression Screening Interpretation: Negative Thrive Assessment: Date of Thrive Assessment Date Thrive assessed 06/06/25 06/06/25 12:26 Currently or been in a relationship where the following occur: No concerns reported Const General: no acute distress HENMT Face and sinus: Yes normal facial exam and No sinus tenderness Mouth: Normal oral and palatal mucosa present Throat: Yes posterior oropharynx normal Neck Neck: Yes no lymphadenopathy and Yes supple Resp Effort & Inspection: normal respiratory effort Auscultation: wheezes and diminished lung sounds Cardio Rhythm: regular rhythm Heart sounds: S1 normal heart sound present and S2 normal heart sound present GI Inspection: Yes normal to inspection Palpation (GI): Soft to palpation Office Procedures Nebulizer Treatment Nebulizer Treatment 33990-Vrxpvymtz/MDI RX initial, or Nebulizer Subsequent Treatment Office Meds albuterol sulfate 2.5 mg/3 mL (0.083 %) solution for nebulization Performing Provider: Natali Macario MD Performing Location: [facility] Adult [facility] Administered by: Ynes Pichardo RN on 06/06/25 13:05 Dose Route Admin Location Dispensed Lot Number Expiration Date [facility] Cardiovascular Technician 2.5 mg inhalation 3 mL [id number] 10/21/26 3651-6866-80 MYLAN Coding Level of Care Code Est Pt Level 4 (35279) Diagnoses Cough R05.9 Asthma J45.909 CPT Codes Nebulizer Treatment - Nebulizer Treatment, initial or subsequent: 88200- Nebulizer/MDI RX initial, or Nebulizer Subsequent Treatment ([id number]) Additional Codes KELSEY-7 Assessment Billing - KELSEY-7 Assessment Tool: KELSEY-7 Assessment 92851 ([id number]) PHQ-9 - 14012 - PHQ-9 Billing: Yes ([id number]) Assessment & Plan Assessment & Plan (1) Cough: Code(s): R05.9 - Cough, unspecified Category: Medical Plan: For persistent cough obtain chest x-ray (2) Asthma: Comment: Controlled on Wixela, using albuterol once or twice a month Code(s): J45.909 - Unspecified asthma, uncomplicated Category: Medical Plan: For worsening asthma control Wixela will be increased to 250/50 mcg twice a day and patient was advised to start taking [id number] antihistamine for seasonal allergies. She will continue to use albuterol as needed. Patient will follow-up in 3 weeks Orders: Orders AMB Nebulizer Treatment Today R05.9 - Cough, unspecified Medications: New fluticasone propion-salmeterol 250-50 mcg/dose (Wixela Inhub) 1 inh inhalation BID 60 ea 1RF Refilled albuterol sulfate 90 mcg/actuation (ProAir HFA) 2 puffs inhalation QID 6.7 grams 4RF
== END 2025-06-06 13:11 | disposition home or self-care (01) ==
LOC: HO.HMCC 12:17
PROVIDERS: PCP Internal Medicine; Visit Provider Internal Medicine
DX: R05.9 Cough, unspecified (principal); J45.909 Unspecified asthma, uncomplicated

== ENCOUNTER → 2025-06-06 13:20 | Outpatient (BNV) | payer MEDICARE, BC, SELFPAY | PROVIDERS: PCP Internal Medicine; Visit Provider Radiology Diagnostic Ultrasound | DX: R91.8 Other nonspecific abnormal finding of lung field (principal) | CPT/HCPCS: 71046 ==

== ENCOUNTER 2025-07-01 11:06 | Outpatient (AMB) | payer MEDICARE, BC, SELFPAY ==
[2025-07-01 11:09] VITALS: BP 126/82; PULSE 90; RESP 16; TEMP 37; O2SAT 98; BMI 34.0
--- NOTE | 2025-07-01 11:09 | A.OFFPC_ITS ---
Vital Signs 07/01/25 11:09 Height 5 ft 2 in Weight 186 lb BMI 34.0 BP 126/82 Blood Pressure Location Lt brachial Position Sitting Respiration 16 Pulse 90 Pulse Source Pulse Oximeter Temp 98.6 F Temp Source Oral Pulse Oximetry (%) 98 Oxygen Delivery Method Room Air Intake Visit Reasons: 3 weeks f/up Intake Note: Pt is here today for 3 weeks follow up visit. Allergies adhesive tape (ADHESIVE TAPE) Allergy (Intermediate, Verified 07/01/25 11:10) BLISTERS/ITCH latex (LATEX) Allergy (Intermediate, Verified 07/01/25 11:10) BLISTERS/ITCH Penicillins (PENICILLINS) Allergy (Intermediate, Verified 07/01/25 11:10) HIVES/RASH sulfamethoxazole (From Bactrim) Allergy (Unknown, Verified 07/01/25 11:10) puritis trimethoprim (From Bactrim) Allergy (Unknown, Verified 07/01/25 11:10) puritis erythromycin base (ERYTHROMYCIN BASE) Adverse Reaction (Intermediate, Verified 07/01/25 11:10) N/V meloxicam Adverse Reaction (Unknown, Verified 07/01/25 11:10) body aches Medication List - Last Reconciled 07/01/25 by Natali Macario MD albuterol sulfate 90 mcg/actuation (ProAir HFA) 2 puffs inhalation QID ascorbic acid (vitamin C) mg PO celecoxib (Celebrex) 200 mg PO DAILY cholecalciferol (vitamin D3) 50 mcg PO DAILY cyclosporine 0.05% drps ophthalmic (eye) fluticasone propion-salmeterol 250-50 mcg/dose (Wixela Inhub) 1 inh inhalation BID fluticasone propionate 50 mcg/actuation 2 sprays intranasal DAILY gabapentin 100 mg PO DAILY pantoprazole 40 mg PO DAILY Tobacco use date assessed: 07/01/25 Fall risk assessment: No Falls in past year Last assessed Fall Risk: 07/01/25 Dental Screening Dental Screen Date: 06/06/25 HPI 3 weeks f/up HPI Details Patient presents for the follow-up of chronic asthma better controlled on Wixela 250 mcg twice a day. Patient has not had to use her albuterol inhaler for over week. Chronic arthritic pain is controlled on Celebrex and gabapentin PENDING SALE TO [facility] Medical History (Updated 07/01/25 @ 16:03 by Natali Macario MD) Normal breast exam Vitamin B 12 deficiency Annual physical exam Vitamin D deficiency Fatigue Lumbar stenosis Neuropathy Mammogram normal Normal colonoscopy Osteopenia PMR (polymyalgia rheumatica) Venous insufficiency Arthritis Acid reflux Seasonal allergies Asthma Surgical History H/O colonoscopy History of ligation of vein History of knee replacement H/O arthroscopy of knee History of section Family History Father No problems noted. Mother Heart disease Maternal Grandfather No problems noted. Maternal Grandmother No problems noted. Paternal Grandfather No problems noted. Paternal Grandmother Breast cancer Social History Housing: House Patient Tobacco Use Status: Never used Tobacco e-Cigarette/Vaping Use: Never Used service: No Current occupational status: retired Cognitive needs: No Hearing needs: No Vision needs: No Questionnaire PHQ-9 Over the last 2 weeks, how often have you been bothered by any of the following problems? 1. Little interest or pleasure in doing things: not at all 2. Feeling down, depressed, or hopeless: not at all 3. Trouble falling or staying asleep, or sleeping too much: not at all 4. Feeling tired or having little energy: more than half the days 5. Poor appetite or overeating: not at all 6. Feeling bad about yourself - or that you are a failure or have let yourself or your family down: not at all 7. Trouble concentrating on things, such as reading the newspaper or watching television: not at all 8. Moving or speaking so slowly that other people could have noticed. Or the opposite - being so fidgety or restless that you have been moving around a lot more than usual: not at all 9. Thoughts that you would be better off or of hurting yourself in some way: not at all Total score: 2 Depression Screening Interpretation: Negative Depression Screening Done: Yes Source: Developed by Drs. Mikael Walden, Mindy Loredo, Gerson Francois and colleagues, with an educational haley from [employer] Thrive Questionnaire Date Thrive assessed: 06/06/25 I am a: Patient What is your living situation today?: I have a steady place to live Within the past 12 months, did the food you bought not last and you didn't have the money to get more?: Never true Within the past 12 months, did you worry whether your food would run out before you got money to buy more?: Never true Do you have trouble paying for medicines?: No Do you have trouble getting transportation to medical appointments?: No Do you have trouble paying your heating and electricity bill?: No Do you have trouble taking care of your child, family member or friend?: No Do you have trouble with day-to-day activities such as bathing, preparing meals, shopping, managing finances, etc.?: No Are you currently unemployed and looking for a job?: No Are you interested in more education?: No Please select the resources that you would like help with: None Currently or been in a relationship where the following occur: No concerns reported THRIVE Score: 0 KELSEY-7 AMB Questionnaire KELSEY-7 Date KELSEY - 7 assessed: 06/06/25 Source: Developed by Drs. Mikael Walden, Mindy Loredo, Gerson Francois and colleagues, with an educational haley from [employer] Review of Systems Const All systems reviewed & are unremarkable except as noted in HPI and below Eyes Reports no additional complaints Card Reports no additional complaints Resp Reports no additional complaints GI Reports no additional complaints Reports no additional complaints Physical exam (Primary Care) Vital Signs: Last Vital Signs Temp 98.6 F 07/01/25 11:09 Pulse 90 07/01/25 11:09 Resp 16 07/01/25 11:09 BP 126/82 07/01/25 11:09 Pulse Ox 98 07/01/25 11:09 Oxygen Delivery Method Room Air 07/01/25 11:09 BMI result Body Mass Index 34.0 Tobacco/Smoking Status: Tobacco use Status Tobacco use date assessed 07/01/25 07/01/25 11:16 Patient Tobacco Use Status Never used Tobacco 07/01/25 11:09 e-Cigarette/Vaping Use Never Used 07/01/25 11:09 PHQ-9: PHQ-9 Score PHQ-9: Total score 2 07/01/25 11:16 Depression Screening Interpretation: Negative Thrive Assessment: Date of Thrive Assessment Date Thrive assessed 06/06/25 07/01/25 11:09 Currently or been in a relationship where the following occur: No concerns reported Const General: no acute distress HENMT Head: Yes normal to inspection Eyes General: appearance normal, both eyes and all related structures Resp Effort & Inspection: normal respiratory effort Auscultation: clear to auscultation bilaterally Cardio Rhythm: regular rhythm Heart sounds: S1 normal heart sound present and S2 normal heart sound present GI Inspection: Yes normal to inspection Coding Level of Care Code Est Pt Level 4 (25262) Diagnoses Abnormal CXR R93.89 Asthma J45.909 Assessment & Plan Assessment & Plan (1) Abnormal CXR: Code(s): R93.89 - Abnormal findings on diagnostic imaging of other specified body struc tures Category: Medical Plan: Repeat chest x-ray, if normal CT of the chest will be canceled (2) Asthma: Comment: Controlled on Wixela, using albuterol once or twice a month Code(s): J45.909 - Unspecified asthma, uncomplicated Category: Medical Plan: Continue Wixela and albuterol PRN follow-up in 3 months Orders: Orders XR chest 4 views Today R93.89 - Abnormal findings on diagnostic imaging of other specified body structures Medications: Changed From gabapentin daily 100 mg PO DAILY To gabapentin daily 600 mg PO DAILY Refilled fluticasone propion-salmeterol 250-50 mcg/dose (Wixela Inhub) 1 inh inhalation BID 180 ea 3RF Discontinued valacyclovir (Valtrex) Discontinued Reason: Doctor's Order 500 mg PO BID 30 tabs 4RF montelukast Discontinued Reason: Doctor's Order 10 mg PO BEDTIME 90 tabs 3RF fluticasone propion-salmeterol 100-50 mcg/dose (Wixela Inhub) Discontinued Reason: Doctor's Order 1 ea inhalation BID 180 ea 3RF
== END 2025-07-01 13:46 | disposition home or self-care (01) ==
LOC: HO.HMCC 11:07
PROVIDERS: PCP Internal Medicine; Visit Provider Internal Medicine
DX: R93.89 Abnormal findings on diagnostic imaging of other specified body structures (principal); J45.909 Unspecified asthma, uncomplicated

== ENCOUNTER 2025-07-01 11:06 | Outpatient (REF) | payer MEDICARE, BC, SELFPAY ==
--- NOTE | ~2025-07-01 | XR_ITS ---
EXAMINATION: XR CHEST CLINICAL INFORMATION: R93.89 - Abnormal findings on diagnostic imaging of other specified body... Hazy opacity projected right upper lung, likely related to overlapping densities. COMPARISON: 06/06/2025. TECHNIQUE: AP, lateral, and shallow bilateral oblique views of the chest were obtained. FINDINGS: The cardiac, hilar, and mediastinal contours are normal. The lungs are clear bilaterally. There is no pneumothorax or pleural effusion. There is no focal osseous or soft tissue abnormality. Degenerative changes throughout the spine with a mild right convex scoliosis and a stable focal minimal kyphotic deformity at T11. XR/XR chest 4 views IMPRESSION: The lungs are clear. There is no active lung disease. No persistent abnormality within the right upper lung identified. Previous finding is consistent with artifact. Electronically signed by: Shaun Newman MD 07/01/2025 12:26 PM [facility]
== END 2025-07-01 11:07 | disposition home or self-care (01) ==
LOC: HO.HMGCX 11:06
PROVIDERS: PCP Internal Medicine; Visit Provider Internal Medicine
DX: R93.89 Abnormal findings on diagnostic imaging of other specified body structures (principal); J45.909 Unspecified asthma, uncomplicated
CPT/HCPCS: 71048; 96127; 99212

== ENCOUNTER → 2025-07-01 11:56 | Outpatient (BNV) | payer MEDICARE, BC, SELFPAY | PROVIDERS: PCP Internal Medicine; Visit Provider Radiology Diagnostic Radiology | DX: R93.89 Abnormal findings on diagnostic imaging of other specified body structures (principal) | CPT/HCPCS: 74018 ==